=== PATIENT | female | born 1990 | race African-American/Black ===

== ENCOUNTER 2018-06-27 09:33 | Emergency (ER) | payer SELFPAY ==
[2018-06-27 11:38] LABS: Absolute Monocytes 0.4 K/uL (0.1-1.3); Absolute Neutrophil 2.6 K/uL (1.8-8.0); Basophils % 0.5 % (0-1.3); Eosinophils % 1.1 % (0-4.4); Hematocrit 36.7 % (36.0-45.0); Lymphocytes % 39.2 % (15.3-44.8); MPV 8.9 fL (7.6-11.3); Monocytes % 7.9 % (3.3-12.3); RBC Red Blood Cell Count 4.53 M/uL (3.86-4.86)
[2018-06-27 11:47] LABS: BUN Blood Urea Nitrogen 15 mg/dL (7-18); Bicarbonate 31 mmol/L (21-32); Glucose Level 176 mg/dL (74-106); Potassium 3.8 mmol/L (3.5-5.1); Sodium Level 139 mmol/L (136-145)
[2018-06-27 11:59] LABS: Urine Bacteria 20-50 /HPF (<20); Urine Culture Reflex Order REFLEXED; Urine Mucus 1+ /HPF (NONE SEEN); Urine RBC <5 /HPF (NONE SEEN)
[2018-06-27 12:06] LABS: Urine Blood NEGATIVE (NEG); Urine Glucose NEGATIVE (NEG); Urine Protein NEGATIVE (NEG); Urine Specific Gravity 1.025 (1.005-1.030); Urine pH 5.5 (5.0-7.0)
--- NOTE | 2018-06-27 12:34 | EDPHYS ---
Physician Documentation [facility] Name: Ping Brown Age: 27 yrs Sex: Female : 1990 Arrival Date: 06/27/2018 Time: 09:38 Bed 20 Private MD: None, None ED Physician Evan Brothers HPI: 06/27 12:53 This 27 yrs old Black Female presents to ER via Ambulatory with complaints of Headache, gs Back Pain. 12:53 The patient complains of pain to the forehead. The patient describes the headache as gs throbbing. Onset: The symptoms/episode began/occurred suddenly, yesterday. Associated signs and symptoms: Pertinent negatives: altered mental status, fever, neck stiffness, Photophobia vision changes, weakness. Severity of symptoms: At its worst the pain was moderate, in the emergency department the pain is unchanged. Headache History: The patient has had previous headaches and this one is similar to previous episodes. The symptoms are alleviated by nothing. the symptoms are aggravated by nothing. The patient has experienced similar episodes in the past, multiple times, for past 2-3 months same headache. 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 - Social history:: Smoking status: Patient uses tobacco products, smokes one pack cigarettes per day. - Ebola Screening: : No symptoms or risks identified at this time. ROS: 12:53 Back: Positive for pain with movement, lower right lateral back, no B/B signs or gs symptoms. Exam: 12:53 Head/Face: Normocephalic, atraumatic. Eyes: Pupils equal round and reactive to light, gs extra-ocular motions intact. Lids and lashes normal. Conjunctiva and sclera are non-icteric and not injected. Cornea within normal limits. Periorbital areas with no swelling, redness, or edema. ENT: Nares patent. No nasal discharge, no septal abnormalities noted. Tympanic membranes are normal and external auditory canals are clear. Oropharynx with no redness, swelling, or masses, exudates, or evidence of obstruction, uvula midline. Mucous membranes moist. Neck: Trachea midline, no thyromegaly or masses palpated, and no cervical lymphadenopathy. Supple, full range of motion without nuchal rigidity, or vertebral point tenderness. No Meningismus. Chest/axilla: Normal chest wall appearance and motion. Nontender with no deformity. No lesions are appreciated. Cardiovascular: Regular rate and rhythm with a normal S1 and S2. No gallops, murmurs, or rubs. Normal PMI, no JVD. No pulse deficits. Respiratory: Lungs have equal breath sounds bilaterally, clear to auscultation and percussion. No rales, rhonchi or wheezes noted. No increased work of breathing, no retractions or nasal flaring. Abdomen/GI: Soft, non-tender, with normal bowel sounds. No distension or tympany. No guarding or rebound. No evidence of tenderness throughout. Back: No spinal tenderness. No costovertebral tenderness. Full range of motion. Skin: Warm, dry with normal turgor. Normal color with no rashes, no lesions, and no evidence of cellulitis. MS/ Extremity: Pulses equal, no cyanosis. Neurovascular intact. Full, normal range of motion. Neuro: Awake and alert, GCS 15, oriented to person, place, time, and situation. Cranial nerves II-XII grossly intact. Motor strength 5/5 in all extremities. Sensory grossly intact. Cerebellar exam normal. Normal gait. 12:53 Constitutional: The patient appears alert, awake. Vital Signs: 10:22 BP 108 / 75; Pulse 73; Resp 18 S; Temp 98.0(TE); Pulse Ox 98% on R/A; Weight 89.81 kg aa5 (R); Height 5 ft. 4 in. (162.56 cm) (R); Pain 6/10; 11:21 BP 130 / 65; Pulse 92; Resp 17; Pulse Ox 97% on R/A; tw2 11:52 BP 119 / 71; Pulse 61; Resp 17; Pulse Ox 97% on R/A; tw2 12:37 BP 132 / 64; Pulse 58; Resp 17; Pulse Ox 98% on R/A; tw2 10:22 Body Mass Index 33.99 (89.81 kg, 162.56 cm) aa MDM: 11:09 Patient medically screened. 12:53 Differential diagnosis: migraine, tension headache, vasomotor headache. Data reviewed: vital signs, nurses notes. Counseling: I had a detailed discussion with the patient and/or guardian regarding: the historical points, exam findings, and any diagnostic results supporting the discharge/admit diagnosis, the presence of at least one elevated blood pressure reading (>120/80) during this emergency department visit, the need for outpatient follow up. Response to treatment: the patient's symptoms have markedly improved after treatment, and as a result, I will discharge patient. Special discussion: I have referred the patient to see his PCP for further evaluation of high blood pressure. 06/27 11:09 Order name: Urine Microscopic Only; Complete Time: 12:25 06/27 11:09 Order name: CBC with Diff; Complete Time: 12:25 06/27 11:09 Order name: Basic Metabolic Panel; Complete Time: 12:25 06/27 11:27 Order name: Urine Dipstick--Ancillary (enter results); Complete Time: 12:25 06/27 11:27 Order name: Urine --Ancillary (enter results); Complete Time: 12:25 06/27 12:01 Order name: Urine Culture [facility] 06/27 11:09 Order name: Urine Test (obtain specimen); Complete Time: 11:10 06/27 11:09 Order name: Urine Dipstick-Ancillary (obtain specimen); Complete Time: 11:10 Administered Medications: No medications were administered Disposition: 06/27/18 12:33 Discharged to Home. Impression: Headache. - Condition is Stable. - Discharge Instructions: General Headache Without Cause. - Prescriptions for Fiorinal 50- 325-40 mg Oral Capsule - take 1 capsule by ORAL route every 6 hours As needed - not to exceed 6 capsules per day; 10 capsule. - Work release form, Medication Reconciliation Form, Thank You Letter, Antibiotic Education, Prescription Opioid Use form. - Follow up: Private Physician; When: 2 - 3 days; Reason: Re-evaluation by your physician. Follow up: Shaun Gordon MD; When: 2 - 3 days; Reason: Re-evaluation by your physician. - Problem is new. - Symptoms are resolved. Signatures: [facility] Charlene Camp RN RN aa5 Cece Rios RN RN tw2 Evan Brothers MD MD Corrections: (The following items were deleted from the chart) 12:43 12:33 06/27/2018 12:33 Discharged to Home. Impression: Headache. Condition is Stable. tw2 Forms are Medication Reconciliation Form, Thank You Letter, Antibiotic Education, Prescription Opioid Use. Follow up: Private Physician; When: 2 - 3 days; Reason: Re-evaluation by your physician. Follow up: Shaun Gordon; When: 2 - 3 days; Reason: Re-evaluation by your physician. Problem is new. Symptoms are resolved. gs
--- NOTE | 2018-06-27 12:34 | ER ---
Nurse's Notes [facility] Name: Ping Brown Age: 27 yrs Sex: Female : 1990 Arrival Date: 06/27/2018 Time: 09:38 Bed 20 Private MD: None, None Diagnosis: Headache Presentation: 06/27 10:20 Presenting complaint: Patient states: low back pain and frontal headache that began aa5 yesterday. Pt also reports nausea, denies vomiting. Denies cough. 10:20 Method Of Arrival: Ambulatory aa5 10:20 Transition of care: patient was not received from another setting of care. Onset of aa5 symptoms was June 2018. Risk Assessment: Do you want to hurt yourself or someone else? Patient reports no desire to harm self or others. Initial Sepsis Screen: Does the patient meet any 2 criteria? No. Patient's initial sepsis screen is negative. Does the patient have a suspected source of infection? No. Patient's initial sepsis screen is negative. Care prior to arrival: None. 10:20 Acuity: MARIA C 3 aa5 Triage Assessment: 11:51 Headache History: The patient has had previous headaches and this one is similar to tw2 previous episodes. General: Appears. Pain: Pain Pain began years ago. Also complains of nausea. 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 - Social history:: Smoking status: Patient uses tobacco products, smokes one pack cigarettes per day. - Ebola Screening: : No symptoms or risks identified at this time. Screenin:51 Abuse screen: Denies threats or abuse. Nutritional screening:. Tuberculosis screening: tw2 No symptoms or risk factors identified. Fall Risk None identified. Assessment: 11:00 General: Appears in no apparent distress. Behavior is calm, cooperative, appropriate tw2 for age. Pain: Complains of pain in back and abdomen. Neuro: Level of Consciousness is awake, alert, obeys commands, Oriented to person, place, time, situation. Neuro: Reports headache. Cardiovascular: Denies chest pain, shortness of breath, Heart tones S1 S2 Patient's skin is warm and dry. Respiratory: Airway is patent Respiratory effort is even, unlabored, Respiratory pattern is regular, symmetrical, Breath sounds are clear bilaterally. GI: Abdomen is flat, non-distended, Bowel sounds present X 4 quads. Reports lower abdominal pain, upper abdominal pain, nausea. : Reports urinary frequency. EENT: No signs and/or symptoms were reported regarding the EENT system. Derm: No signs and/or symptoms reported regarding the dermatologic system. Skin is intact, is healthy with good turgor, Skin is dry, Skin temperature is warm. Musculoskeletal: Range of motion: intact in all extremities. 11:52 Reassessment: Patient appears in no apparent distress at this time. No changes from tw2 previously documented assessment. Patient and/or family updated on plan of care and expected duration. Pain level reassessed. Patient is alert, oriented x 3, equal unlabored respirations, skin warm/dry/pink. 12:42 Reassessment: Patient appears in no apparent distress at this time. No changes from tw2 previously documented assessment. Patient and/or family updated on plan of care and expected duration. Pain level reassessed. Patient is alert, oriented x 3, equal unlabored respirations, skin warm/dry/pink. Vital Signs: 10:22 BP 108 / 75; Pulse 73; Resp 18 S; Temp 98.0(TE); Pulse Ox 98% on R/A; Weight 89.81 kg aa5 (R); Height 5 ft. 4 in. (162.56 cm) (R); Pain 6/10; 11:21 BP 130 / 65; Pulse 92; Resp 17; Pulse Ox 97% on R/A; tw2 11:52 BP 119 / 71; Pulse 61; Resp 17; Pulse Ox 97% on R/A; tw2 12:37 BP 132 / 64; Pulse 58; Resp 17; Pulse Ox 98% on R/A; tw2 10:22 Body Mass Index 33.99 (89.81 kg, 162.56 cm) aa5 ED Course: 09:38 Patient arrived in ED. sb2 09:39 None, None is Private Physician. sb2 10:20 Arm band placed on. aa5 10:25 Triage completed. aa5 11:00 Evan Brothers MD is Attending Physician. gs 11:02 Rios, Cece, RN is Primary Nurse. tw2 11:02 Bed in low position. Call light in reach. Pulse ox on. NIBP on. tw2 11:20 CBC with Diff Sent. tw2 11:20 Basic Metabolic Panel Sent. tw2 11:20 Inserted saline lock: 22 gauge in left antecubital area, using aseptic technique. Blood tw2 collected. 12:33 Shaun Gordon MD is Referral Physician. 12:43 No provider procedures requiring assistance completed. IV discontinued, intact, tw2 bleeding controlled, No redness/swelling at site. Pressure dressing applied. Administered Medications: No medications were administered Outcome: 12:33 Discharge ordered by . gs 12:43 Discharged to home ambulatory. tw2 12:43 Condition: stable 12:43 Discharge instructions given to patient, Instructed on discharge instructions, follow up and referral plans. no drinking with medication, no driving heavy equipment, medication usage, Demonstrated understanding of instructions, follow-up care, medications, Prescriptions given X 1. 12:43 Patient left the ED. tw2 Signatures: Charlene Camp RN RN aa5 Cece Rios RN RN tw2 Evan Brothers MD MD Monik Ortega sb2
== END 2018-06-27 12:43 | disposition home or self-care (01) ==
LOC: ER 09:33
DX: R51 Headache (principal); F17.210 Nicotine dependence, cigarettes, uncomplicated
CPT/HCPCS: 36415; 80048; 81003; 81015; 81025; 85025; 87086; 87088; 99284

== ENCOUNTER 2020-06-25 21:18 | Inpatient (IN) | payer SELFPAY ==
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
--- OUTSIDE RECORDS SUMMARY | 2020-06-25 21:36 | XMS REPORT | Summary of Care ---
:1990 Author Organization [facility] Address [address] [place], [place] [id number] Care Team Providers Name Role Phone Pcp, Does Not Have A Primary Care Provider Encounter Details Date Type Department Care Team Description 04/30/2020 Orders Only [facility] Doctor Unassigned, No [address] [facility] [place] [address] Allergies No Known Allergiesdocumented as of this encounter (statuses as of 04/30/2020) Medications Medication Sig Dispensed Refills Start Date End Date Status Condoms Latex Use as directed 12 Each 0 03/11/2015 Active Lubricated (KIMONO TEXTURED CONDOMS) DeviIndications: General counseling for prescription of oral contraceptives norgestimate-ethinyl Take 1 tablet by 1 Package 2 09/28/2018 Active estradiol mouth daily. 0.18/0.215/0.25 mg-35 mcg (28) tabletIndications: Irregular menstrual cycle documented as of this encounter (statuses as of 04/30/2020) Active Problems Problem Noted Date Pre-diabetes 09/28/2018 General counseling and advice on contraceptive managem ent 10/09/2016 Well woman exam 10/09/2016 BMI 36.0-36.9,adult 10/09/2016 Depression, unspecified depression type 10/09/2016 Overview: denies Suicidal Ideas or harmful Ideas - to self or family, Does not feel she needs meds at this time - local resources give n 10/09/2016 Irregular menstrual cycle 10/09/2016 Overview: 10/09/2016 states her menses only comes t wice a year, last 04/2016 Tobacco use disorder 12/06/2013 documented as of this encounter (statuses as of 04/30/2020) Resolved Problems Problem Noted Date Resolved Date Need for Tdap vaccination 10/09/2016 04/06/2018 Routine screening for STI (sexually transmitted infection) 0 10/09/2016 04/06/2018 Obesity 12/06/2013 10/09/2016 Overview: ICD10 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 documented as of this encounter (statuses as of 04/30/2020) Immunizations Name Administration Dates Next Due TDAP (ADACEL) VACCINE 10/09/2016 Td 06/21/2004 documented as of this encounter Social History Tobacco Use Types Packs/Day Years Used Date Current Every Day Smoker Cigarettes Sta rted: 04/06/2008 Smokeless Tobacco: Never Used Comments: smokes 1-2 packs per day Alcohol Use Drinks/Week oz/Week Comments No Sex Assigned at Date Recorded Not on file documented as of this encounter Last Filed Vital Signs Not on filedocumented in this encounter Plan of Treatment Health Maintenance Due Date Last Done Comments VARICELLA VACCINES (1 of 2 11/30/1991 - 2-dose childhood series) Depression Screening 2002 INFLUENZA VACCINE (#1) 2020 PAP SMEAR 04/06/2021 04/06/2018, 03/11/2015, 08/01/2012, Additional history exists DTaP,Tdap,and Td Vaccines 10/09/2026 10/09/2016, 06/21/2004 (3 - Td) PNEUMOCOCCAL 0-64 YEARS Aged Out No longe r eligible COMBINED SERIES based on patient 's age to complete this topic documented as of this encounter Procedures Procedure Name Priority Date/Time Associated Diagnosis Comme nts ASSIGNMENT OF BENEFITS Routine 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
--- OUTSIDE RECORDS SUMMARY | 2020-06-25 21:36 | XMS REPORT | Summary of Care ---
:1990 Author Organization [facility] Address [address] [place] [id number] Care Team Providers Name Role Phone Pcp, Does Not Have A Primary Care Provider Reason for Visit Reason Comments Well Woman Exam Encounter Details Date Type Department Care Team Description 04/30/[address] [facility]- Zeenat Boateng Wel l woman exam (Primary Dx); [facility] Screen for STD (sexually transmitted dis ease); [address] Encounter for other general counseling o r advice on contraception; [address] Need for influenza vaccination; [place] [id number] 15 BMI 37.0-37.9, adult; [id number] Pre-diabetes; [phone] Desire fo r ; Hirsutism Allergies No Known Allergiesdocumented as of this encounter (statuses as of 04/30/2020) Medications Medication Sig Dispensed Refills Start Date End Date Status Condoms Latex Use as 12 Each 0 03/11/2015 Disco ntinued Lubricated (KIMONO directed 0 TEXTURED CONDOMS) DeviIndications: General counseling for prescription of oral contraceptives norgestimate-ethinyl Take 1 tablet 1 Package 2 09/28/2018 11/1 0/202 Discontinued estradiol by mouth 0 0.18/0.215/0.25 daily. 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 documented as of this encounter (statuses as of 04/30/2020) Immunizations Name Administration Dates Next Due Influenza Virus Vaccine Quad .5 mL IM 6+ MO 04/30/2020 TDAP (ADACEL) VACCINE 10/09/2016 Td 06/21/2004 documented as of this encounter Social History Tobacco Use Types Packs/Day Years Used Date Current Every Day Smoker Cigarettes 1 Sta rted: 04/06/2008 Smokeless Tobacco: Never Used Tobacco Cessation: Ready to Quit: Yes; C ounseling Given: Yes Comments: smokes 1 pack per day Alcohol Use Drinks/Week oz/Week Comments No Sex Assigned at Date Recorded Not on file documented as of this encounter Last Filed Vital Signs Vital Sign Reading Time Taken Comments Blood Pressure 109/73 04/30/2020 8:10 AM ASH COLLECTOR Pulse 61 04/30/2020 8:10 AM ASH COLLECTOR Temperature 36.6 C (97.9 F) 04/30/2020 8:10 AM ASH COLLECTOR Respiratory Rate 18 04/30/2020 8:10 AM ASH COLLECTOR Oxygen Saturation - - Inhaled Oxygen Concentration - - Weight 96.3 kg (212 lb 4.8 oz) 04/30/2020 8:10 AM ASH COLLECTOR Height 160 cm (5' 3") 04/30/2020 8:10 AM ASH COLLECTOR Body Mass Index 37.61 04/30/2020 8:10 AM ASH COLLECTOR documented in this encounter Patient Instructions Patient InstructionsOri Figueroa RN - 04/30/2020 7:45 AM CST Patient Education Understanding STIs When it comes to sex, nothing is risk-free. Any sexual contact with the penis, vagina, anus, or mouth can spread a sexually transmitted infection (STI). These include chlamydia, gonorrhea, herpes, HIV,and genital warts. STIs are also known as sexually transmitted diseases (STDs). The only sure way toprevent STIs is not having sex (abstinence). But there are ways to make sex safer. Use a latex condom each time you have sex. And choose your partner wisely. Use condoms for safer sex If you have sex, latex condoms provide the best protection against STIs. Latex condoms stop the exchange of body fluids that carry certain STIs. They also limit contact with affected skin. Be aware that a condom doesnt cover all skin. So affected skin that isn't covered can still transfer disease. But youre safer with a condom than without one. Use a condom even if you use other control. control methods such as the pill or IUD help prevent , but they don't protect against STIs. Choose the right condom Condoms made of latex prevent disease best. If youre allergic to latex, use polyurethane condoms instead. Male condoms fit over the penis. Female condoms line the vagina. Before buying a condom, read the label to be sure it prevents disease. Some novelty condoms dont. The right lubricant helps Buy lubricated condoms or use lubricant. This provides greater comfort and reduces the risk for condom breakage. Use only water-based lubricants. Dont use oil, lotion, or petroleum jelly. They can weaken the condom, causing breakage. Also, you may want to choose lubricants without nonoxynol-9. This spermicide may cause irritation. It can raise the risk for certain STIs. Use condoms correctly For condoms to work, they must be used the right way. Keep these tips in mind: Use a new latex condom each time you have sex. Slip the condom on the penis before any contact ismade. When ready to withdraw, hold the rim of the condom as the penis pulls out. This prevents the condom from slipping off. Check the expiration date before using a condom. Dont store condoms in places that can get hot, such as a car or a wallet that is carried in a back pocket. Get to know your partner Safer sex is a process. It involves getting to know your partner and making informed choices. Ask each other how many partners you have had in the past, and how many you have now. Find out if either ofyou has HIV or any other STI. If you decide to have sex, use a condom each time. Dont stop using condoms unless youre sure neither of you has other partners and youve both been tested to confirm you dont have HIV or other STIs. Then stay free of disease by having sex only with each other (monogamy). Keep your cool Dont let alcohol or drugs cloud your judgment. They could lead you to have sex with someone you wouldnt have chosen if you were sober. Or you might forget to use a condom. If you do plan to have sex, keep a latex condom with you. Dont wait until youre in the heat of passion to try to find one. Consider abstinence The only way to be sure you wont get an STI is to abstain from sex. Abstinence is a choice that many people make at some point in their life. Maybe you want to wait until you are sure youre readybefore you have sex. Maybe youd like a break from the responsibilities of sex for a while. Or maybe you just want to know your partner better before taking the next step. Abstinence is a choice you can make now to protect your future. [employer] last reviewed this educational content on 05/21/201819999193-3522 [employer]. [address] [place] [address], [place] [address]. All rights reserved. This information is not intended as a substitute for professional medical care. Always follow your healthcare professional's instructions. Patient Education Prevention Guidelines,Women Ages 18 to 39 Screening tests and vaccines are an important part of managing your health. A screening test is doneto find possible disorders or diseases in people who don't have any symptoms. The goal is to find a disease early so lifestyle changes can be made and you can be watched more closely to reduce the riskof disease, or to detect it early enough to treat it most effectively. Screening tests are not considered diagnostic, but are used to determine if more testing is needed. Health counseling is essential, too. Below are guidelines for these, for women ages 18 to 39. Talk with your healthcare provider tomake sure youre up-to-date on what you need. Screening Who needs it How often Alcohol misuse All women in this age group At routine exams Blood pressure All women in this age group Yearly checkup if your blood pressure is normal Normal blood pressure is less than 120/80 mm Hg If your blood pressure reading is higher than normal, follow the advice of your healthcare provider Breast cancer All women in this age group should talk with their healthcare providers about the needfor clinical breast exams (CBE)1 Clinical breast exam every 3 years1 Cervical cancer Women ages 21 and older Women between ages 21 and 29 should have a Pap test every 3years; women between ages 30 and 65 are advised to have a Pap test plus an HPV test every 5 years Chlamydia Sexually active women ages 24 and younger, and women at increased risk for infection Every 3 years if you're at risk or have symptoms Depression All women in this age group At routine exams Diabetes mellitus, type 2 Adults with no symptoms who are overweight or obese and have 1 or more other risk factors for diabetes At least every 3 years. Also, testing for diabetes during after the 24th week. Gonorrhea Sexually active women at increased risk for infection At routine exams Hepatitis C Anyone at increased risk At routine exams HIV All women At routine exams3 Obesity All women in this age group At routine exams Syphilis Women at increased risk for infection should talk with their healthcare provider At routine exams Tuberculosis Women at increased risk for infection should talk with their healthcare provider Ask your healthcare provider Vision All women in this age group At least 1 complete exam in your 20s, and 2 in your 30s Vaccine Who needs it How often Chickenpox (varicella) All women in this age group who have no record of this infection or vaccine2 doses; the second dose should be given 4 to 8 weeks after the first dose Hepatitis A Women at increased risk for infection should talk with their healthcare provider 2 doses given at least 6 months apart Hepatitis B Women at increased risk for infection should talk with their healthcare provider 3 doses over 6 months; second dose should be given 1 month after the first dose; the third dose should be given at least 2 months after the second dose and at least 4 months after the first dose Haemophilus influenzae Type B (HIB) Women at increased risk for infection should talk with their healthcare provider 1 to 3 doses Human papillomavirus (HPV) All women in this age group up to age 26 3 doses; the second dose should be given 1 to 2 months after the first dose and the third dose given 6 months after the first dose Influenza (flu) All women in this age group Once a year Measles, mumps, rubella (MMR) All women in this age group who have no record of these infections orvaccines 1 or 2 doses Meningococcal Women at increased risk for infection should talk with their healthcare provider 1 ormore doses Pneumococcal conjugate vaccine (PCV13)and pneumococcal polysaccharidevaccine(PPSV23) Women atincreased risk for infection should talk with their healthcare provider PCV13: 1 dose ages 19 to 65(protects against 13 types of pneumococcal bacteria) PPSV23: 1 to2 doses through age 64, or 1 dose at 65 or older (protects against 23 types of pneumococcal bacteria) Tetanus/diphtheria/pertussis (Td/Tdap) booster All women in this age group Td every 10 years, or a one-time dose of Tdap instead of a Td booster after age 18, then Td every 10 years Counseling Who needs it How often BRCA gene mutation testing for breast and ovarian cancer susceptibility Women with increased risk for having gene mutation When your risk is known Breast cancer and chemoprevention Women at high risk for breast cancer When your risk is known Diet and exercise Women who are overweight or obese When diagnosed, and then at routine exams Domestic violence Women at the age in which they are able to have children At routine exams Sexually transmitted infection prevention Women who are sexually active At routine exams Skin cancer Prevention of skin cancer in fair-skinned adults At routine exams Use of tobacco and the health effects it can cause All women in this age group Every visit 1 According to the ACS, women ages 20 to 39 years should have a clinical breast exam (CBE) as part of their routine health exam every 3 years. Breast self-exams are an option for women starting in their 20s.But the U.S. Preventive Services Task Force (USPSTF) does not recommend CBE. 2 Those who are 18 years old and not up-to-date on their childhood vaccines should get all appropriate catch-up vaccines recommended by the CDC. 3 The USPSTF recommends that all people ages 15 to 65 years be screened for HIV and those younger orolder people at increased risk. The CDC recommends that everyone between the ages of 13 and 64 get tested for HIV at least once as part of routine health care. MilaYves last reviewed this educational content on 03/21/201719996321-9715 [employer]. All rights reserved. This information is not intended as a substitute for professional medical care. Always follow your healthcare professional's instructions. Patient Education Understanding HIV and AIDS It's important to know how HIV can get into your body and what happens once its there. Then youll be better prepared to protect yourself or others against this virus. A person with HIV can look and feel perfectly healthy. But that person can give HIV to others as soon as he or she is infected with the virus. Having unsafe or unprotected sex or sharing needles puts you at risk for HIV. Talk with your healthcare provider about ways to protect yourself or a loved one from getting HIV. How HIV infection progresses After HIV enters the body, it attacks the immune system in the stages below. A person with HIV can infect others once the virus gets into the blood. HIV with no symptoms. A person with HIV may have no symptoms for years. The only sign of infection may be a positive blood test for HIV 2 weeks to 3 months or later after HIV enters the body. HIV with symptoms. Some people develop an illness similar to mono (mononucleosis) 2 to 4 weeks after the virus enters the body. This is called acute retroviral syndrome. Symptoms may include swollen lymph glands, chills, fever, night sweats, weakness, weight loss, skin rashes, mouth ulcers, or sore t hroat. Symptoms may be mild or the person can feel quite sick. Even without treatment the symptoms almost always go away in a few days or up to 2 to 3 weeks. Then the person has no symptoms, often for years. But over time the immune system starts to get weaker and symptoms start appearing. People at this stage may have a yeast infection in the mouth (oral thrush), shingles, skin problems, pneumonia, diarrhea that keeps coming back, or weight loss. AIDS. AIDS is the most advanced stage of HIV infection, when the immune system is severely weakened.Certain rare diseases and cancers that normally would not occur, now can occur because the body can no longer fight them well enough. It is often these diseases that cause in people with AIDS. HIV may also directly attack the brain and nervous system. This causes seizures and loss of memory and body movement. It also affects many other parts of the body. This leads to problems such as anemia, low white blood cell count, diarrhea, belly pain, skin problems, and many others. How HIV enters the body HIV is carried in semen, vaginal fluid, blood, and breastmilk. During sex, HIV can enter the body. It gets in through the fragile tissue and linings, sores, or cuts in or around the vagina, penis, anus, and mouth. During drug use, tattooing, or body piercing, the virus can enter the blood through an infected needle. A mother who has HIV can infect her child during , childbirth, and . [employer] last reviewed this educational content on 11/19/201819999479-8764 [employer]. [address] [place] [address]. All rights reserved. This information is not intended as a substitute for professional medical care. Always follow your healthcare professional's instructions. Patient Education Clinical Breast Exam Many health organizations recommend a yearly clinical breast exam. This exam may be done by a meter tester, family healthcare provider, nurse practitioner, nurse insurance checker, or specially trained nurse. Yearly breast exams help tomake surethat breast conditions are found early. Your healthcare providers role A healthcare professional knows the tests and follow-up care needed if a problem is found. Your clinical exam is also a great time to ask questions about breast self-exams. You can find out if yourechecking your breasts in the best way. Or you may want to ask how , breast implants, or breast reduction surgery affect the way you should check your breasts. Diagnostic tests If a clinical exam reveals a breast change, you may have other tests to find out more. These tests may include: Mammography. A low-dose X-ray of your breast tissue. Ultrasound. An imaging test that uses sound waves to create images of your breast. Biopsy. A small amount of breast tissue is removed by needle or by a cut (incision). The tissue is then checked under a microscope. Guidelines for having clinical breast exams The [employer] recommends that starting at age 29, you should have a clinical breast exam every 1 to 3 years. After age 40, have a clinical breast exam each year. If youre at higher risk for breast cancer, you may need exams more often. Risk factors for breast cancer may include: Being over 50 or postmenopausal Having a family history of breast cancer Having the BRCA1 or BRCA2 gene mutation or certain other gene mutations Having more menstrual periods due to starting menstruation early(before age 12) or having a late menopause (after age 55) Having no pregnancies Having a first after age 30 Being obese Having a history of radiation treatment to your chest area Exposure to MAITE during your mother's Not being active Drinking too much alcohol Having dense breast tissue Taking hormone therapy after menopause Other health organizations have different recommendations. Talk with your healthcare provider about what is best for you. [employer] esther reviewed this educational content on 09/20/201919997736-3631 [employer]. All rights reserved. This information is not intended as a substitute for professional medical care. Always follow your healthcare professional's instructions. Patient Education Breast Health: Breast Self-Awareness What is breast self-awareness? Breast self-awareness is knowing how your breasts normally look and feel. Your breasts change as yougo through different stages of your life. So its important to learn what is normal for your breasts. Knowing about your breasts helps you spot any changes in them right away. Tell your healthcare provider about any changes. Why is breast self-awareness important? Many experts now say that women should focus on breast self-awareness instead of doing a breast self-examination (BSE). These experts include the [employer] and the [employer]. Some experts even advise not teaching women to do a BSE. Thats because research hasnt shown a clear benefit to doing BSEs. Breast self-awareness is different than a BSE. It isnt about following a certain method and schedule. Its about knowing what's normal for your breasts. That way you can spot even small changes right away. If you see any changes, tell your healthcare provider. Changes to look for Call your healthcare provider if you find any changes in your breasts that worry you. These changes may be: A lump Nipple discharge other than breast milk, especially if it's bloody Swelling A change in size or shape Skin changes, such as redness, thickening, or dimpling of the skin Swollen lymph nodes in the armpit Nipple problems, such as pain or redness If you find a lump Call your provider if you find lumpiness in one breast. Also call if you feel something different inthe tissue or feel a definite lump. Sometimes lumpiness may be due to menstrual changes. But there may be reason for concern. Your provider may want to see you right away if you have: Nipple discharge that is bloody Skin changes on your breast, such as dimpling or puckering Its okay to be upset if you find a lump. Be sure to call your provider right away. Remember that most breast lumps are benign. This means they are not cancer. [employer] last reviewed this educational content on 10/20/201919991844-0160 [employer]. All rights reserved. This information is not intended as a substitute for professional medical care. Always follow your healthcare professional's instructions. Patient Education The Range of Pap Test Results When your Pap test is sent to the lab, the lab studies your cell samples and reports any abnormal cell changes. Your healthcare provider can discuss these changes with you. In some cases, an abnormal Pap test is due to an infection. More serious cell changes range from dysplasia to cancer. Talk to your healthcare provider about your Pap test. Normal results Cervical cells, even normal ones, are always changing. As they mature, normal squamous cells move from deeper layers within the cervix. Over time, these cells flatten and cover the surface of the cervix. Within the cervical canal, the cells are different. These glandular cells are taller and not as flat as the cells on the surface of the cervix. When a Pap test sample shows healthy cells of both types, the results are negative. Keep having Pap tests as often as directed. Abnormal results A positive Pap test result means some cells in the sample showed abnormal changes. These results aregrouped by the type of cell change and the location, or extent, of the changes. Depending on the results, you may need further testing. Inflammation. Noncancerous changes are present. They may be due to normal cell repair. Or they may be caused by an infection, such as HPV or yeast. Further testing may be needed. (Also called reactive cellular changes.) Atypical squamous cells. Test results are unclear. Cells on the surface of the cervix show changes, but their significance is not yet known. Testing for HPV and other sexually transmitted infections(STIs) may be needed. Treatment may be required. (Reported as ASC-US or ASC-H.) Atypical glandular cells. Cells lining the cervical canal show abnormal changes. Further testing is likely. You may also have treatment to destroy or remove problem cells. (Reported as AGC.) Mild dysplasia. Cells show distinct changes. More testing or HPV typing may be done. You may alsohave treatment to destroy or remove problem cells. (Reported as low-grade GREGORY or DAYDAY 1.) Moderate to severe dysplasia. Cells show precancerous changes. Or noninvasive cancer (carcinoma in situ) may be present. Treatment to destroy or remove problem cells is likely. (Reported as high-grade GREGORY or DAYDAY 2 or DAYDAY 3.) Cancer. Different types of cancer may be detected by your Pap test. More tests to assess the cancer's extent are likely. The type of treatment will depend on the test results and other factors, suchas age and health history. (Reported as squamous cell carcinoma, endocervical adenocarcinoma in situ, or adenocarcinoma.) [employer] last reviewed this educational content on 11/20/201919996092-9088 [employer]. All rights reserved. This information is not intended as a substitute for professional medical care. Always follow your healthcare professional's instructions. Patient Education Control Methods control methods are used to help prevent .There are many different methods to choose from. Talk with your healthcare provider about which method is right for you.Be sure to ask your provider how well each one works. Also ask about the benefits, risks, and side effects of each method. Hormones Some control methods work by releasing hormones such as progestin and estrogen. These methods include hormone implants, hormone shots, the vaginal ring, the patch,and control pills. They all work by stopping the release of the egg from the ovary (ovulation). All of these methods work well and can be stopped at any time. The implant is a small device that needs to be placed in the upper arm by a trained healthcare provider. It works for up to3 years. Hormone injections must be repeated every 3 months. The vaginal ring must be replaced monthly. It can be removed during the fourth week of each cycle. The patch must be replaced weekly. It's not worn during the fourth week of each cycle. control pills must be taken every day. Intrauterine device (IUD) An IUD is a small, T-shaped device. It must be placed in the uterus by a trained healthcare provider.There are different types of IUDs available. They work by causing changes in the uterus that make it harder for sperm to reach the egg. Depending on the type of IUD you have, it may work for several years or longer. The IUD is a reversible control method. This means it can be removed at any time. Condom A condom is a sheath that forms a thin barrier between the penis and the vagina.It helps prevent by keeping sperm from entering the vagina. When latex condoms are used, they have the added benefit of protecting against most STIs (sexually transmitted infections).Condoms are used each time there is sexual intercourse and should be discarded after each use. Ask your healthcare provider about the different types of condoms available. These include both the male condom and female condom. Spermicide Spermicides come as foams, jellies, creams, suppositories, andtablets.They help prevent by killing sperm. When used alone they are not that reliable. They work best when combined with other control methods such as diaphragms and cervical caps. Sponge, diaphragm, and cervical cap All of these methods help prevent by covering the opening of the uterus (cervix). This prevents sperm from passing through. The sponge contains spermicide. It can be bought over the counter. The sponge must be left in place for at least 6 hours after the last time you have sex.However, it should not stay in place for morethan 24 hours. Discard after use. Thediaphragmand cervical cap must be fitted and prescribed by your healthcare provider. Both areused with spermicide.The diaphragm must be left in place for at least 6 hours after sex. However, it should not stay in place for more than 24 hours.It can be washed and reused. The cervical cap must be left in place for at least 6 hours after sex. However, it should not stay in place for more than 48 hours. It can be washed and reused. Withdrawal method This is when the man pulls his penis out of the vagina just before ejaculation (coming). This lowers the amount of sperm entering the vagina. Be aware that fluids released just before ejaculationoften still contain some sperm, so this method is not as reliable as certain other methods. Rhythm method This method is also call natural family planning or fertility awareness. It requires that you know when in your menstrual cycle you are likely to become . Then you not have sex during those days. This requires careful planning and good discipline. Your healthcare provider can explain more about how this works. Tubal ligation and vasectomy These are surgical methods to prevent . Tubal ligation is an option for women. The fallopian tubes are blocked or cut (ligated). This keeps the egg from passing into the uterus or sperm from reaching the egg. Vasectomy is an option for men. The tubes that normally carry sperm to the penis areeither closed or blocked. Both tubal ligation and vasectomy are permanent control methods. This means reversal is either not possible or unlikely to work.They are good choices for women and menwho know that they don't want to have children in the future. [employer] last reviewed this educational content on 12/20/201919999136-0494 [employer]. All rights reserved. This information is not intended as a substitute for professional medical care. Always follow your healthcare professional's instructions. COLLECTOR documented in this encounter Progress Notes Zeenat Boateng, ANTON - 04/30/2020 7:45 AM CST Chief complaint: Chief Complaint Patient presents with Well Woman Exam HPI Here for Well Woman Exam and contraceptive management. Patient desires nothing for contraception, desires to conceive. Reviewed risks/benefits/alternative contraceptive methods. Denies cramps, vaginal discharge, genital lesions, breast pain and vaginal pain. Pt concerned she has PCOS, based on her research. Reports history of irregular menses, but currently regular q month. +hirsituism. Has been trying to conceive for over 2 years. Noted to be pre-diabetic in 2018. Was previously recommend OPK, but never tried, unsure if she is ovulating. Desires STD testing. Pt reports no past or present history of physical, sexual, and emotional abuse. Rubella: immune VZV: deferred BMI: Body mass index is 37.61 kg/m. Td: 2017 Pap Smear: 2018 NILM Gardasil: N/A Mammogram:N/A Guaiac:N/A Colonoscopy:N/A Histories OB History Para Term AB Living 0 0 0 0 0 0 SAB TAB Ectopic Multiple Live Births 0 0 0 0 Past Medical History: Diagnosis Date Abnormal uterine bleeding Anxiety 2017 ongoing, not on medication Chlamydia 2010 treated Depression, unspecified depression type 10/09/2016 ongoing, not on medication Gonorrhea 2010 treated Irregular menstrual cycle Menstrual disorder Substance abuse Tobacco use disorder 12/06/2013 Family History Problem Relation Age of Onset Heart Other Irregular HR and Murmur Depression Other Hypertension Other Psychiatry Other Hypertension Maternal Aunt Diabetes Maternal Aunt Colon Cancer Maternal Uncle Cancer Maternal Grandfather Lung, Prostate Diabetes Maternal Grandfather Arthritis NoFHx Asthma NoFHx defects NoFHx Breast Cancer NoFHx Ovarian Cancer NoFHx Uterine Cancer NoFHx Genetic NoFHx High cholesterol NoFHx Mental retardation NoFHx Neurological NoFHx Osteoporosis NoFHx Family Status Relation Name Status OTHER Cousin Alive MAunt (Not Specified) MUnc (Not Specified) MGFa (Not Specified) NoFHx (Not Specified) History reviewed. No pertinent surgical history. Social History Socioeconomic History Marital status: Single Spouse name: Not on file Number of children: Not on file Years of education: Not on file Highest education level: Not on file Occupational History Not on file Social Needs Financial resource strain: Not on file Food insecurity Worry: Not on file Inability: Not on file Transportation needs Medical: Not on file Non-medical: Not on file Tobacco Use Smoking status: Current Every Day Smoker Packs/day: 1.00 Types: Cigarettes Start date: 04/06/2008 Smokeless tobacco: Never Used Tobacco comment: smokes 1 pack per day Substance and Sexual Activity Alcohol use: No Drug use: Yes Types: Marijuana Sexual activity: Yes Partners: Male control/protection: None Comment: last sexual intercourse 03/28/2018 Lifestyle Physical activity Days per week: Not on file Minutes per session: Not on file Stress: Not on file Relationships Social connections Talks on phone: Not on file Gets together: Not on file Attends rastafarian service: Not on file Active member of club or organization: Not on file Attends meetings of clubs or organizations: Not on file Relationship status: Not on file Intimate partner violence Fear of current or ex partner: Not on file Emotionally abused: Not on file Physically abused: Not on file Forced sexual activity: Not on file Other Topics Concern Not on file Social History Narrative Denies domestic violence or abuse. Patient lives with mother. Social History Substance and Sexual Activity Sexual Activity Yes Partners: Male control/protection: None Comment: last sexual intercourse 03/28/2018 Labs Labs are pending. Radiology No new radiology. Allergies Timesjb has No Known Allergies. Medications Ping currently has no medications in their medication list. Review of Systems Constitutional: Negative. HENT: Negative. Eyes: Negative. Respiratory: Negative. Breasts: Negative. Cardiovascular: Negative. Gastrointestinal: Negative. Genitourinary: Negative. Musculoskeletal: Negative. Skin: Negative. Neurological: Negative. Psychiatric/Behavioral: Negative. Endocrine: Endocrine negative Facial and chest hair growth BP 109/73 (BP Location: Right arm, Patient Position: Sitting, BP CUFF SIZE: Adult Medium) | Pulse 61 | Temp 36.6 C (97.9 F) (Oral) | Resp 18 | Ht 5' 3" (1.6 m) | Wt 212 lb 4.8 oz (96.3 kg) | LMP 04/01/2020 (Exact Date) | BMI 37.61 kg/m Pregravid BMI: Could not be calculated Physical Exam Vitals reviewed. Constitutional: She is oriented to person, place, and time. She appears well- developed and well-nourished. Her body habitus is normal and obese. Central adiposity Neck: No thyroid nodules and no thyromegaly palpated. Cardiovascular: Regular rate and rhythm. No murmur auscultated. Pulmonary/Chest: Breath sounds clear to auscultation. Normal inspiratory effort. Abdominal: Abdomen is soft. No mass palpated. No tenderness present. There is no hepatosplenomegaly. Neuro/Psychiatric: She has a normal mood and affect. She is oriented to person, place, and time. Skin: Skin normal. No lesion and no rash present. Coarse hair on chin and face Breast: Right breast exhibits no mass, no nipple discharge and no tenderness. Left breast exhibits no mass, no nipple discharge and no tenderness. Normal left breast and normal right breast Assessment/Plan 1. Well woman exam CBE performed, educated patient regarding self breast awareness. SBE monthly. Patient advised mammograms to begin at age 40 Encourage green leafy vegetables, lean meats and fruit in diet. Avoid fatty, fried, sugary foods. Increase H2O intake (1/2 body weight in ozs). Exercise 30 minutes daily x 7 days/week as tolerated. Follow up 1 year Educated on the effects of chronic health problems, tobacco use, and mental health on future pregnancies and/or watermaster health. 2. Screen for STD (sexually transmitted disease) Reviewed safe sex practices - HIV 1/2 AG-AB WITH REFLEX - GALV ONLY - SYPHILIS IGG/IGM - GC & CHLAMYDIA AMPLIFIED ASSAY 3. Encounter for other general counseling or advice on contraception D/w pt at length various BCMs including OCPs, Patch, Depo Provera, vaginal rings, condoms, implants and iuds. We discussed the risk/benefits/side effects of each. After discussion, pt declines contraception at this time. 4. Need for influenza vaccination Administered today. VSS provided. - FLU VACC([id number]), 6+ MONTHS, IM, QUAD (FLUZONE/FLULAVAL/FLUARIX) 5. BMI 37.0-37.9, adult The patient is asked to make an attempt to improve diet and exercise patterns to aid in medical management of this problem. Discussed role of obesity in possible PCOS and infertility - LIPID PANEL (10663)(TOTAL CHOLESTEROL, TRIGLYCERIDES, HDL) 6. Pre-diabetes Discussed recommended diet and lifestyle changes - GLYCOSYLATED HEMOGLOBIN (A1C) 7. Desire for Discussed tracking menses in an luz with predicted ovulatory window Discussed OPKs and timed intercourse Recommend seeking ALEXANDER consultation 8. Hirsutism Possible PCOS, however currently having regular menses, unable to obtain pelvic ultrasound, normal testosterone level in 2018 Declines OCPs at this time for medical management Return to clinic in 52 weeks. Discussed treatment options. Reviewed patient instructions and provided printed copy. This visit did not involve counseling and coordination that comprised more than 50% of the visit time. Zara Miller LVN - 04/30/2020 7:45 AM CST29 year old presented to the clinic for WWE. 1) Previous BCM:none 2) Desired BCM:none 3) LMP:04/01/2020 4) Last [facility]:04/29/2020 5) Last Pap:04/06/2018 Results:negative 6) Tdap in last 10 years?10/09/2016 HPV?no 7) C/O none 8) Patient denies history of physical, emotional, or sexual abuse. Patient states she currently feels safe at home. COLLECTOR documented in this encounter Plan of Treatment Date Type Specialty Care Team Description 05/01/2021 Office Visit [facility] Zeenat Boateng, WO[employer]ER [address] [place], [place] [address] [phone] Name Type Priority Associated Diagnoses Date/Ti me HIV 1/2 AG-AB WITH REFLEX LAB Routine Screen for STD (sexually 04/30/2020 8:48 AM transmitted disease) ASH COLLECTOR GALV ONLY - SYPHILIS LAB Routine Screen for STD (sexu ally 04/30/2020 8:48 AM IGG/IGM transmitted disease) ASH COLLECTOR GLYCOSYLATED HEMOGLOBIN LAB Routine Pre-diabetes 04/21 8:48 AM (A1C) ASH COLLECTOR LIPID PANEL (13744)(TOTAL LAB Routine BMI 37.0-37.9, adult 04/30/2020 8:48 AM CHOLESTEROL, ASH COLLECTOR TRIGLYCERIDES, HDL) GC & CHLAMYDIA AMPLIFIED LAB Routine Screen for STD ( sexually 04/30/2020 8:49 AM ASSAY transmitted disease) ASH COLLECTOR Health Maintenance Due Date Last Done Comments PAP SMEAR 04/06/2021 04/06/2018, 03/11/2015, 08/01/2012, Additional history exists Depression Screening 04/30/2021 04/30/2020, 04/30/2020 DTaP,Tdap,and Td Vaccines (3 - 10/09/2026 10/09/2016, 06/21 Td) INFLUENZA VACCINE Completed 04/30/2020 PNEUMOCOCCAL 0-64 YEARS COMBINED Discontinued SERIES VARICELLA VACCINES Discontinued documented as of this encounter Procedures Procedure Name Priority Date/Time Associated Diagnosis Comme nts FLU VACC ([id number]), Routine 04/30/2020 8:27 AM Need for inf luenza 6+ MONTHS, IM, QUAD ASH COLLECTOR vaccination documented in this encounter Results Not on filedocumented in this encounter Visit Diagnoses Diagnosis Encounter for other general counseling o r advice on contraception Screen for STD (sexually transmitted dis ease) Screening examination for venereal disea se Need for influenza vaccination Need for prophylactic vaccination and in oculation against influenza BMI 37.0-37.9, adult Pre-diabetes Other abnormal glucose Desire for Unspecified procreative management Hirsutism documented in this encounter Insurance Payer Benefit Plan Subscriber ID Effective Phone Address Typ e / Group Dates [facility] [id number] 2016-Prese [phone] Medicaid WOMEN [address] [place] [address] documented as of this encounter
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
--- OUTSIDE RECORDS SUMMARY | 2020-06-25 21:37 | XMS REPORT | Summary of Care ---
:1990 Author Organization [facility] Address [address] [place] [address] Care Team Providers Name Role Phone Pcp, Does Not Have A Primary Care Provider Reason for Visit Reason Comments NURSE VISIT Encounter Details Date Type Department Care Team Description 05/10/2020 Nurse Visit [facility] Lula Boateng, SEGMENT PRODUCER [address] [place], [place] [id number] Syphilis (Primary Dx) [place] Visit, [facility] Nurse [address] [place] [address] Allergies No Known Allergiesdocumented as of this encounter (statuses as of 05/10/2020) Medications Hospital, Clinic, or Ordered Dose Route Frequency Start Date End D ate Status Other Facility Administered Medication penicillin g benzathine 2.4 Million Units IM QWEEKLY 05/03/20 20 05/24/2020 Active (BICILLIN L-A) injection 2.4 Million Units documented as of this encounter (statuses as of 05/10/2020) Active Problems Problem Noted Date Syphilis 05/03/2020 Low serum HDL 05/01/2020 High triglycerides 05/01/2020 Type 2 diabetes mellitus without complication, without long-term current 05/01/2020 use of insulin Desire for 04/30/2020 Hirsutism 04/30/2020 Pre-diabetes 09/28/2018 [...] as of this encounter (statuses as of 05/10/2020) Resolved Problems Problem Noted Date Resolved Date Need for Tdap vaccination 10/09/2016 04/06/2018 Routine screening for STI (sexually transmitted infection) 0 10/09/2016 04/06/2018 Obesity 12/06/2013 10/09/2016 Overview: ICD10 Diagnosis Term Traffic Counter Utility documented as of this encounter (statuses as of 05/10/2020) Immunizations Name Administration Dates Next Due Influenza Virus Vaccine Quad .5 mL IM 6+ MO 04/30/2020 TDAP (ADACEL) VACCINE 10/09/2016 Td 06/21/2004 documented as of this encounter Social History Tobacco Use Types Packs/Day Years Used Date Current Every Day Smoker Cigarettes 1 Sta rted: 04/06/2008 Smokeless Tobacco: Never Used Comments: smokes 1 pack per day Alcohol Use Drinks/Week oz/Week Comments No Sex Assigned at Date Recorded Not on file COVID-19 Exposure Response Date Recorded In the last month, have you been in contact with No / Unsure 05/10/2020 1:31 PM VALVE PIPE IRRIGATOR someone who was confirmed or suspected to have Coronavirus / COVID-19? documented as of this encounter Last Filed Vital Signs Vital Sign Reading Time Taken Comments Blood Pressure 122/78 05/10/2020 1:32 PM VALVE PIPE IRRIGATOR Pulse 95 05/10/2020 1:32 PM VALVE PIPE IRRIGATOR Temperature 36.7 C (98 F) 05/10/2020 1:32 PM VALVE PIPE IRRIGATOR Respiratory Rate 16 05/10/2020 1:32 PM VALVE PIPE IRRIGATOR Oxygen Saturation - - Inhaled Oxygen Concentration - - Weight 96.7 kg (213 lb 3.2 oz) 05/10/2020 1:32 PM VALVE PIPE IRRIGATOR Height 160 cm (5' 3") 05/10/2020 1:32 PM VALVE PIPE IRRIGATOR Body Mass Index 37.77 05/10/2020 1:32 PM VALVE PIPE IRRIGATOR documented in this encounter Progress Notes Sheridan Perez, RN - 05/10/2020 1:30 PM CSTPatient here for nurse visit: Syphilis treatment #2 Patient given Bicillin injections per provider's orders from clinic stock. Patient tolerated injections well. Patient to RTC in 1 wk for dose #3. Patient verbalized understanding. documented in this encounter Plan of Treatment Date Type Specialty Care Team Description 05/22/2020 Nurse Visit [facility] Visit, [facility] Nurse 05/01/2021 Office Visit [facility] Zeenat Boateng, SEGMENT PRODUCER [address] [place], [place] [address] [phone] Health Maintenance Due Date Last Done Comments CREATININE (SERUM) 2000 EYE EXAM 2000 URINE MICROALBUMIN 2000 FOOT EXAM 2008 HgA1C 10/28/2020 04/30/2020, 04/06/2018 PAP SMEAR 04/06/2021 04/06/2018, 03/11/2015, 08/01/2012, Additional history exists Depression Screening 04/30/2021 04/30/2020, 04/30/2020 LDL-C 04/30/2021 04/30/2020 DTaP,Tdap,and Td Vaccines (3 - 10/09/2026 10/09/2016, 06/21 Td) INFLUENZA VACCINE Completed 04/30/2020 PNEUMOCOCCAL 0-64 YEARS COMBINED Discontinued SERIES VARICELLA VACCINES Discontinued documented as of this encounter Results Not on filedocumented in this encounter Visit Diagnoses Diagnosis Syphilis - Primary Syphilis, unspecified documented in this encounter Administered Medications Medication Order MAR Action Action Date Dose Rate Site penicillin g Given 05/10/2020 2.4 Million Bilateral G luteus benzathine (BICILLIN 1:47 PM VALVE PIPE IRRIGATOR Units L-A) injection 2.4 Million Units 2.4 Million Units, Intramuscular, QWEEKLY, 3 doses, First dose on Wed05/03/20 at 1645, Last dose on Wed05/17/20 at 1645, XIAO, Reason for Anti-Infective: Documented Infection, Documented Infection Site: Other, Other site: systemic, Duration of Therapy: Other (see Comments) Given 05/03/2020 4:56 PM VALVE PIPE IRRIGATOR 2.4 Million Units Bilateral Gluteus documented in this encounter Insurance Payer Benefit Plan Subscriber ID Effective Phone Address Typ e / Group Dates [facility] [id number] 2016-Randee [phone] Medicaid WOMEN nt [address] [place] [address] documented as of this encounter
--- OUTSIDE RECORDS SUMMARY | 2020-06-25 21:37 | XMS REPORT | Summary of Care ---
:1990 Author Organization [facility] [employer] Address [address] [place] [address] Care Team Providers Name Role Phone Pcp, Does Not Have A Primary Care Provider Reason for Visit Reason Comments Lab Results Encounter Details Date Type Department Care Team Description 05/01/2020 Telephone [facility] Zeenat Neumann, ANTON Lab Results [address] [place] [address] [facility] A [phone] [place], [place] [address] Allergies No Known Allergiesdocumented as of this encounter (statuses as of 05/01/2020) Medications No known medicationsdocumented as of this encounter (statuses as of 05/01/2020) Active Problems Problem Noted Date Low serum HDL 05/01/2020 High triglycerides 05/01/2020 [...] as of this encounter (statuses as of 05/01/2020) Resolved Problems Problem Noted Date Resolved Date Need for Tdap vaccination 10/09/2016 04/06/2018 Routine screening for STI (sexually transmitted infection) 0 10/09/2016 04/06/2018 Obesity 12/06/2013 10/09/2016 Overview: ICD10 Diagnosis Term Transportation Solutions Manager Utility documented as of this encounter (statuses as of 05/01/2020) Immunizations Name Administration Dates Next Due Influenza [...] Signs Not on filedocumented in this encounter Miscellaneous Notes Telephone Encounter - Errol Elder RN - 05/01/2020 10:01 AM CSTCalled patient, notified of providers recommendations and lab results. Patient verbalized understanding. ERROL ELDER RN 05/01/2020 10:01 AM SAW OPERATOR Telephone Encounter - Zeenat Boateng FNP - 05/01/2020 7:57 AM CSTPts HgA1C is now 7, which is in the diabetic range, no longer pre-diabetes. It is important for her to make major lifestyle changes, such as the diet plans we talked about yesterday as well as consistent exercise. It is recommended that she become established with a PCP for further management and discussion on medication. Her cholesterol also shows low HDL (good cholesterol) and elevated triglycerides, which can also be improved with lifestyle changes. documented in this encounter Plan of Treatment Date Type Specialty Care Team Description 05/01/2021 Office Visit [facility] Zeenat Boateng FNP [address] [place], [place] [address] [phone] Health Maintenance Due Date Last Done Comments [...] filedocumented in this encounter Visit Diagnoses Diagnosis Type 2 diabetes mellitus without complic ation, without long-term current use of insulin - Primary High triglycerides Pure hyperglyceridemia Low serum HDL documented in this encounter Insurance Payer Benefit Plan Subscriber ID Effective Phone Address Typ e / Group Dates [facility] [id number] 2016-Randee [phone] Medicaid WOMEN nt [address] [place] [address] documented as of this encounter
--- OUTSIDE RECORDS SUMMARY | 2020-06-25 21:37 | XMS REPORT | Summary of Care ---
:1990 Author Organization [facility] Address [address] [place] [address] Care Team Providers Name Role Phone Pcp, Does Not Have A Primary Care Provider Reason for Visit Reason Comments NURSE VISIT Syphillis treatment Encounter Details Date Type Department Care Team Description 05/03/2020 Nurse Visit [facility]- Gigi Torres, [facility] [address] [place], [place] [phone] Syphilis (Primary Dx) [place] Visit, [facility] Nurse [address] [place] [address] Allergies No Known Allergiesdocumented as of this encounter (statuses as of 05/03/2020) Medications Hospital, Clinic, or Ordered Dose Route Frequency Start Date End D ate Status Other Facility Administered Medication penicillin g benzathine 2.4 Million Units IM QWEEKLY 05/03/20 20 05/24/2020 Active (BICILLIN L-A) injection 2.4 Million Units documented as of this encounter (statuses as of 05/03/2020) Active Problems Problem Noted Date Syphilis 05/03/2020 [...] as of this encounter (statuses as of 05/03/2020) Resolved Problems Problem Noted Date Resolved Date Need for Tdap vaccination 10/09/2016 04/06/2018 Routine screening for STI (sexually transmitted infection) 0 10/09/2016 04/06/2018 Obesity 12/06/2013 10/09/2016 Overview: ICD10 Diagnosis Term Dinkey Engine Firer Utility documented as of this encounter (statuses as of 05/03/2020) Immunizations Name Administration Dates Next Due Influenza [...] Sign Reading Time Taken Comments Blood Pressure 111/75 05/03/2020 4:37 PM MD SENIOR RESEARCH SCIENTIST Pulse 64 05/03/2020 4:37 PM MD SENIOR RESEARCH SCIENTIST Temperature 36.8 C (98.2 F) 05/03/2020 4:37 PM MD SENIOR RESEARCH SCIENTIST Respiratory Rate 16 05/03/2020 4:37 PM MD SENIOR RESEARCH SCIENTIST Oxygen Saturation - - Inhaled Oxygen Concentration - - Weight 97.3 kg (214 lb 6.4 oz) 05/03/2020 4:37 PM MD SENIOR RESEARCH SCIENTIST Height - - Body Mass Index 37.98 04/30/2020 8:10 AM MD SENIOR RESEARCH SCIENTIST documented in this encounter Progress Notes Sheridan Perez RN - 05/03/2020 4:00 PM CSTTimesjb Blackwell is a 29 year old female Patient here for Nurse visit: STD/Syphillis treatment #1 of 3 Bicillin tx Pt given bicillin as ordered by provider via IM to bilateral glutes. Patient tolerated treatment well. Patient to rtc in 1 wk for 2 of 3 bicillin treatments. Patient informed to abstain from sex until end of treatment. Patient stated partner will be treated in [facility]. Patient verbalized understanding. documented in this encounter Plan of Treatment Date Type Specialty Care Team Description 05/10/2020 Nurse Visit [facility] Visit, [facility] Nurse 05/01/2021 Office Visit [facility] Zeenat Boateng, HEADER BOSS [address] [address] [phone] Health Maintenance Due Date Last Done Comments [...] Date Dose Rate Site penicillin g Given 05/03/2020 2.4 Million Bilateral G luteus benzathine (BICILLIN 4:56 PM MD SENIOR RESEARCH SCIENTIST Units L-A) injection 2.4 Million Units 2.4 Million Units, Intramuscular, QWEEKLY, 3 doses, First dose on 11/13/20 at 1645, Last dose on Wed05/17/20 at 1645, XIAO, Reason for Anti-Infective: Documented Infection, Documented Infection Site: Other, Other site: systemic, Duration of Therapy: Other (see Comments) documented in this encounter Insurance Payer Benefit Plan Subscriber ID Effective Phone Address Typ e / Group Dates [facility] [id number] 2016-Randee [phone] Medicaid WOMEN nt [address] [place] [address] documented as of this encounter
--- OUTSIDE RECORDS SUMMARY | 2020-06-25 21:37 | XMS REPORT | Summary of Care ---
:1990 Author Organization [facility] Address [address] [place] [address] Care Team Providers Name Role Phone Pcp, Does Not Have A Primary Care Provider Reason for Visit Reason Comments Well Woman Exam Encounter Details Date Type Department Care Team Description 04/30/2020 Office Visit [facility]- Zeenat Boateng Wel l woman exam (Primary Dx); [facility] Screen for STD (sexually transmitted dis ease); [address] Encounter for other general counseling o r advice on contraception; Street [address] A Need for influenza vaccination; [place] [address] 15 BMI 37.0-37.9, adult; [address] Pre-diabetes; [phone] Desire fo r ; Hirsutism Allergies No [...] Obesity 12/06/2013 10/09/2016 Overview: ICD10 Diagnosis Term Commercial Title Examiner Utility documented as of this encounter (statuses [...] Comments Blood Pressure 109/73 04/30/2020 8:10 AM COPIER FIELD SERVICE TECHNICIAN Pulse 61 04/30/2020 8:10 AM COPIER FIELD SERVICE TECHNICIAN Temperature 36.6 C (97.9 F) 04/30/2020 8:10 AM COPIER FIELD SERVICE TECHNICIAN Respiratory Rate 18 04/30/2020 8:10 AM COPIER FIELD SERVICE TECHNICIAN Oxygen Saturation - - Inhaled Oxygen Concentration - - Weight 96.3 kg (212 lb 4.8 oz) 04/30/2020 8:10 AM COPIER FIELD SERVICE TECHNICIAN Height 160 cm (5' 3") 04/30/2020 8:10 AM COPIER FIELD SERVICE TECHNICIAN Body Mass Index 37.61 04/30/2020 8:10 AM COPIER FIELD SERVICE TECHNICIAN documented in this encounter Patient Instructions Patient [...] can make now to protect your future. [employer] last reviewed this educational content on 05/21/201819990968-1112 [employer]. [address] [place] [address], [place] [address]. All rights reserved. This information is not [...] once as part of routine health care. [employer] last reviewed this educational content on 03/21/201719993328-7544 [employer]. All rights reserved. This information is not [...] her child during , childbirth, and . [employer] last reviewed this educational content on 11/19/201819992955-1250 [employer]. [address] [place] [address]. All rights reserved. This information is not intended as a substitute for professional medical care. Always follow your healthcare professional's instructions. Patient Education Clinical Breast Exam Many health organizations recommend a yearly clinical breast exam. This exam may be done by a salesperson floor coverings, family healthcare provider, nurse practitioner, nurse food preparation supervisor, or specially trained nurse. Yearly breast exams [...] Guidelines for having clinical breast exams The [place] College of Obstetricians and Gynecologists recommends that [...] provider about what is best for you. [employer] esther reviewed this educational content on 09/20/201919997338-3599 [employer]. All rights reserved. This information is not [...] breast self-examination (BSE). These experts include the [place] [employer] Society and the [place] Congress of Obstetricians and Gynecologists. Some experts [...] benign. This means they are not cancer. [employer] last reviewed this educational content on 10/20/201919997776-5765 [employer]. All rights reserved. This information is not [...] carcinoma, endocervical adenocarcinoma in situ, or adenocarcinoma.) [employer] last reviewed this educational content on 11/20/201919992065-4051 [employer]. All rights reserved. This information is not [...] want to have children in the future. [employer] last reviewed this educational content on 12/20/201919997026-8547 [employer]. All rights reserved. This information is not intended as a substitute for professional medical care. Always follow your healthcare professional's instructions. ER FIELD SERVICE TECHNICIAN documented in this encounter Progress Notes Zeenat [...] file Gets together: Not on file Attends christianity service: Not on file Active member of [...] and mental health on future pregnancies and/or sales person health. 2. Screen for STD (sexually transmitted [...] vaccination Administered today. VSS provided. - FLU VACC([id number]), 6+ MONTHS, IM, QUAD (FLUZONE/FLULAVAL/FLUARIX) 5. BMI 37.0-37.9, adult The patient is asked to make an attempt to improve diet and exercise patterns to aid in medical management of this problem. Discussed role of obesity in possible PCOS and infertility - LIPID PANEL (31163)(TOTAL CHOLESTEROL, TRIGLYCERIDES, HDL) 6. Pre-diabetes Discussed recommended [...] 2) Desired BCM:none 3) LMP:04/01/2020 4) Last [place]:04/29/2020 5) Last Pap:04/06/2018 Results:negative 6) Tdap in last 10 years?10/09/2016 HPV?no 7) C/O none 8) Patient denies history of physical, emotional, or sexual abuse. Patient states she currently feels safe at home. ER FIELD SERVICE TECHNICIAN documented in this encounter Plan of Treatment Date Type Specialty Care Team Description 05/01/2021 Office Visit [facility] Zeenat Boateng, SUCCESSFACTORS CONSULTANT [address] [place], [place] [address] [phone] Name Type Priority Associated Diagnoses Date/Ti me HIV 1/2 AG-AB WITH REFLEX LAB Routine Screen for STD (sexually 04/30/2020 8:48 AM transmitted disease) COPIER FIELD SERVICE TECHNICIAN GALV ONLY - SYPHILIS LAB Routine Screen for STD (sexu ally 04/30/2020 8:48 AM IGG/IGM transmitted disease) COPIER FIELD SERVICE TECHNICIAN GLYCOSYLATED HEMOGLOBIN LAB Routine Pre-diabetes 04/21 8:48 AM (A1C) COPIER FIELD SERVICE TECHNICIAN LIPID PANEL (22890)(TOTAL LAB Routine BMI 37.0-37.9, adult 04/30/2020 8:48 AM CHOLESTEROL, COPIER FIELD SERVICE TECHNICIAN TRIGLYCERIDES, HDL) GC & CHLAMYDIA AMPLIFIED LAB Routine Screen for STD ( sexually 04/30/2020 8:49 AM ASSAY transmitted disease) COPIER FIELD SERVICE TECHNICIAN Health Maintenance Due Date Last Done Comments PAP SMEAR 04/06/2021 04/06/2018, 03/11/2015, 08/01/2012, Additional history exists Depression Screening 04/30/2021 04/30/2020, 04/30/2020 DTaP,Tdap,and Td Vaccines (3 - 10/09/2026 10/09/2016, 06/21 Td) INFLUENZA VACCINE Completed 04/30/2020 PNEUMOCOCCAL 0-64 YEARS COMBINED Discontinued SERIES VARICELLA VACCINES Discontinued documented as of this encounter Procedures Procedure Name Priority Date/Time Associated Diagnosis Comme nts FLU VACC ([id number]), Routine 04/30/2020 8:27 AM Need for inf luenza 6+ MONTHS, IM, QUAD COPIER FIELD SERVICE TECHNICIAN vaccination documented in this encounter Results Not [...] Address Typ e / Group Dates [facility] [id number] 2016-Prese [phone] Medicaid WOMEN nt [address] [place] [address] documented as of this encounter
--- OUTSIDE RECORDS SUMMARY | 2020-06-25 21:37 | XMS REPORT | Summary of Care ---
:1990 Author Organization [facility] Address [address] [place] [address] Care Team Providers Name Role Phone Pcp, Does Not Have A Primary Care Provider Reason for Visit Reason Comments SYPHILIS Encounter Details Date Type Department Care Team Description 05/03/2020 Telephone [facility]- A Zeenat Neumann, TRUCK WASHER SYPHILIS [address] [place] [address] Counts Include [address] [facility] [phone] [place] [address] Allergies No Known Allergiesdocumented as of this encounter (statuses as of 05/03/2020) Medications No known medicationsdocumented as of this [...] Obesity 12/06/2013 10/09/2016 Overview: ICD10 Diagnosis Term Manpower Development Manager Utility documented as of this encounter [...] this encounter Miscellaneous Notes Telephone Encounter - Zara Rodriguez LVN - 05/03/2020 8:26 AM CSTTimeshimark Blackwell is a 29 year old female Patient informed of results and orders. Stated she has never been diagnosed before. NV made for today at 4pm. elephone Encounter - Zeenat Boateng FNP - 05/03/2020 8:03 AM CSTPlease let patient know her blood work is positive for syphilis. Has she been diagnosed with syphilis before? Our last syphilis test on file was in 2017. Did she ever have any symptoms of an ulcer, rash, etc? As we do not know how long she has had the infection, she will need to RTC for penicillin injections weekly for 3 doses. She will then need repeat blood work at 6, 12, and 24 months. It is VERY important that her partner also get tested and treated. documented in this encounter Plan of Treatment Date Type Specialty Care Team Description 05/03/2020 Nurse Visit [facility] Visit, Mica Nurse 05/01/2021 Office Visit [facility] Zeenat Boateng FNP [address] [place], [place] [address] [phone] Health Maintenance Due Date Last Done Comments [...] Primary Syphilis, unspecified documented in this encounter Insurance Payer Benefit Plan Subscriber ID Effective Phone Address Typ e / Group Dates [facility] [id number] 2016-Prese [phone] Medicaid WOMEN nt [address] [place] [address] documented as of this encounter
--- OUTSIDE RECORDS SUMMARY | 2020-06-25 21:38 | XMS REPORT | Summary of Care ---
:1990 Author Organization [facility] Address [address] [place] [address] Care Team Providers Name Role Phone Pcp, Does Not Have A Primary Care Provider Reason for Visit Reason Comments NURSE VISIT Encounter Details Date Type Department Care Team Description 05/22/[address] [facility] [address] [place] [address] Syphilis (Primary Dx) Worth Visit, [facility] Nurse [address] [place] [address] Allergies No Known Allergiesdocumented as of this encounter (statuses as of 05/22/2020) Medications Hospital, Clinic, or Ordered Dose Route Frequency Start Date End D ate Status Other Facility Administered Medication penicillin g benzathine 2.4 Million Units IM QWEEKLY 05/03/20 20 05/22/2020 Ended (BICILLIN L-A) injection 2.4 Million Units documented as of this encounter (statuses as of 05/22/2020) Active Problems Problem Noted Date Syphilis 05/03/2020 [...] as of this encounter (statuses as of 05/22/2020) Resolved Problems Problem Noted Date Resolved Date Need for Tdap vaccination 10/09/2016 04/06/2018 Routine screening for STI (sexually transmitted infection) 0 10/09/2016 04/06/2018 Obesity 12/06/2013 10/09/2016 Overview: ICD10 Diagnosis Term Mammography Supervisor Utility documented as of this encounter (statuses as of 05/22/2020) Immunizations Name Administration Dates Next Due Influenza [...] been in contact with No / Unsure 05/22/2020 4:17 PM NETWORK SERVICES PROJECT MANAGER someone who was confirmed or suspected to have Coronavirus / COVID-19? documented as of this encounter Last Filed Vital Signs Vital Sign Reading Time Taken Comments Blood Pressure 131/90 05/22/2020 4:18 PM NETWORK SERVICES PROJECT MANAGER Pulse 84 05/22/2020 4:18 PM NETWORK SERVICES PROJECT MANAGER Temperature 37.8 C (100 F) 05/22/2020 4:18 PM NETWORK SERVICES PROJECT MANAGER Respiratory Rate 16 05/22/2020 4:18 PM NETWORK SERVICES PROJECT MANAGER Oxygen Saturation - - Inhaled Oxygen Concentration - - Weight 93.8 kg (206 lb 11.2 oz) 05/22/2020 4:18 PM NETWORK SERVICES PROJECT MANAGER Height 160 cm (5' 3") 05/22/2020 4:18 PM NETWORK SERVICES PROJECT MANAGER Body Mass Index 36.62 05/22/2020 4:18 PM NETWORK SERVICES PROJECT MANAGER documented in this encounter Progress Notes Ori Figueroa RN - 05/22/2020 4:00 PM CSTPatient here for nurse visit: Syphilis treatment #3 Patient given Bicillin injections per provider's orders from clinic stock. Patient tolerated injections well. Patient to RTC in 6 months for lab visit for syphilis testing perguidelines. Patient verbalized understanding. documented in this encounter Plan of Treatment Date Type Specialty Care Team Description 11/20/2020 [address] Construction Inspector [facility]/01/2021 Office Visit [facility] Zeenat Boateng, STRAIGHT KNIFE CUTTER MACHINE [address] [place], [place] [address] [phone] Health Maintenance Due Date Last Done Comments [...] Date Dose Rate Site penicillin g Given 05/22/2020 2.4 Million Bilateral G luteus benzathine (BICILLIN 4:46 PM NETWORK SERVICES PROJECT MANAGER Units L-A) injection 2.4 Million Units 2.4 Million Units, Intramuscular, QWEEKLY, 3 doses, First dose on Wed05/03/20 at 1645, Last dose on Wed05/17/20 at 1645, XIAO, Reason for Anti-Infective: Documented Infection, Documented Infection Site: Other, Other site: systemic, Duration of Therapy: Other (see Comments) Given 05/10/2020 1:47 PM NETWORK SERVICES PROJECT MANAGER 2.4 Million Units Bilateral Gluteus Given 05/03/2020 4:56 PM NETWORK SERVICES PROJECT MANAGER 2.4 Million Units Bilateral Gluteus documented in this encounter Insurance Payer Benefit Plan Subscriber ID Effective Phone Address Typ e / Group Dates [facility] [id number] 2016-Randee [phone] Medicaid WOMEN nt [address] [place] [address] documented as of this encounter
--- OUTSIDE RECORDS SUMMARY | 2020-06-25 21:38 | XMS REPORT | Summary of Care ---
:1990 Author Organization [facility] Address [address] [place] [address] Care Team Providers Name Role Phone Pcp, Does Not Have A Primary Care Provider Reason for Visit Reason Comments Assessment Encounter Details Date Type Department Care Team Description 06/24/2020 Telephone [facility]- A Zeenat Neumann, CNA LTC Assessment [address] [facility] [address] [place] [address] [facility] [phone] [place], [place] [address] [phone] Allergies No Known Allergiesdocumented as of this encounter (statuses as of 06/24/2020) Medications No known medicationsdocumented as of this encounter (statuses as of 06/24/2020) Active Problems Problem Noted Date Syphilis 05/03/2020 [...] as of this encounter (statuses as of 06/24/2020) Resolved Problems Problem Noted Date Resolved Date Need for Tdap vaccination 10/09/2016 04/06/2018 Routine screening for STI (sexually transmitted infection) 0 10/09/2016 04/06/2018 Obesity 12/06/2013 10/09/2016 Overview: ICD10 Diagnosis 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 Patient reports soaking more raphael 1 pad an hour for the last 5 days. Patient denies severe pain and or fever. Patient reports feeling dizzy andlightheaded. Advised patient to follow-up with er for evaluation and call us to schedule er follow up. Patient verbalized understanding. ERROL ELDER RN 06/24/2020 4:49 PM HALMOLOGIST RETINA SPECIALIST Telephone Encounter - Cristin Culver - 06/24/2020 12:17 PM CSTTimesjb Blackwell is a 29 year old female Patient wants to speak to nurse states she has been on her cycle for two weeks and having cramping when she goes to urine documented in this encounter Plan of Treatment Date Type Specialty Care Team Description 11/20/2020 Inflatable Buildings Laminator Visit [facility] Kacey, Sophiesreekanth 05/01/2021 Office Visit [facility] Zeenat Boateng, CNA LTC [address] [place], [place] [address] [phone] Health Maintenance Due Date Last Done Comments [...] Typ e / Group Dates [facility] [id number] 2016-Randee [phone] [address] Medicaid WOMEN nt [address] [place] [address] documented as of this encounter
[2020-06-25 22:36] LABS: Absolute Lymphocytes (CBC) 2.4 K/uL (0.7-4.9); Basophils % 0.8 % (0-1.3); Lymphocytes % 38.7 % (15.3-44.8); MPV 10.1 fL (7.6-11.3)
[2020-06-25 22:57] LABS: Urine Blood 3+ (NEG); Urine Glucose 2+ (NEG); Urine Protein NEGATIVE (NEG); Urine pH 5.5 (5.0-7.0)
[2020-06-26 00:11] LABS: BUN Blood Urea Nitrogen 14 mg/dL (7-18); Bicarbonate 27 mmol/L (21-32); Glucose Level 877 mg/dL (74-106); HCG, Quantitative < 1 mIU/mL (1-3); Potassium 4.8 mmol/L (3.5-5.1); Sodium Level 125 mmol/L (136-145)
--- NOTE | 2020-06-26 00:28 | ER ---
Nurse's Notes [facility] Name: Ping Brown Age: 29 yrs Sex: Female : 1990 Arrival Date: 06/25/2020 Time: 21:18 Bed 19 Private MD: Diagnosis: Hyperglycemia, unspecified-New onset diabetes;Abnormal uterine and vaginal bleeding, unspecified Presentation: 06/25 21:25 Ebola Screen: Patient negative for fever greater than or equal to 101.5 degrees ca1 Fahrenheit, and additional compatible Ebola Virus Disease symptoms Patient denies exposure to infectious person. Patient denies travel to an Ebola-affected area in the 21 days before illness onset. No symptoms or risks identified at this time. Risk Assessment: Do you want to hurt yourself or someone else? Patient reports no desire to harm self or others. 21:25 Acuity: MARIA C 3 ca1 21:38 Chief complaint: Patient states: I have been on my period for 2 weeks. Has been steady ca1 flow and hasn't stopped. Reports cramping, dizziness and lightheaded. Coronavirus screen: Client denies travel out of the [place] in the last 14 days. At this time, the client does not indicate any symptoms associated with coronavirus-19. Initial Sepsis Screen: Does the patient meet any 2 criteria? No. Patient's initial sepsis screen is negative. Does the patient have a suspected source of infection? No. Patient's initial sepsis screen is negative. Onset of symptoms was June 25, 2020. 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 - Social history:: Smoking status: Patient reports the use of cigarette tobacco products, denies chronic smoking, but will smoke occasionally. Screenin:00 Abuse screen: Denies threats or abuse. Denies injuries from another. Nutritional zb screening: No deficits noted. Tuberculosis screening: No symptoms or risk factors identified. Fall Risk None identified. Assessment: 21:30 General: Appears in no apparent distress. Behavior is calm, cooperative, appropriate zb for age. Pain: Denies pain. Neuro: Level of Consciousness is awake, alert, obeys commands, Oriented to person, place, time, situation. Cardiovascular: Capillary refill < 3 seconds in bilateral fingers Patient's skin is warm and dry. Respiratory: Airway is patent Respiratory effort is even, unlabored, Respiratory pattern is regular, symmetrical. GI: No signs and/or symptoms were reported involving the gastrointestinal system. : Reports cramping, vaginal bleeding that is bright red, moderate flow. : Denies burning with urination, inability to void. EENT: No signs and/or symptoms were reported regarding the EENT system. Derm: Skin is intact, is healthy with good turgor, Skin is dry, Skin is normal, Skin temperature is warm. Musculoskeletal: Circulation, motion, and sensation intact. Capillary refill < 3 seconds, in bilateral fingers. Range of motion: intact in all extremities. 22:30 Reassessment: Patient appears in no apparent distress at this time. Patient and/or zb family updated on plan of care and expected duration. Pain level reassessed. Patient is alert, oriented x 3, equal unlabored respirations, skin warm/dry/pink. no c/o at this time. pt up ad sienna , ambulates well to restroom. 23:16 Reassessment: lab collected labs. zb 06/26 00:16 Reassessment: Patient and/or family updated on plan of care and expected duration. Pain ll2 level reassessed. Patient is alert, oriented x 3, equal unlabored respirations, skin warm/dry/pink. 01:20 Reassessment: Patient and/or family updated on plan of care and expected duration. Pain ll2 level reassessed. Patient is alert, oriented x 3, equal unlabored respirations, skin warm/dry/pink. 02:34 Reassessment: Patient and/or family updated on plan of care and expected duration. Pain ll2 level reassessed. Patient is alert, oriented x 3, equal unlabored respirations, skin warm/dry/pink. attempted to give report, requested to have the nurse call me back. 02:44 Reassessment: report given to DOREEN mejia. ll2 Vital Signs: 06/25 21:38 BP 122 / 78; Pulse 78; Resp 16 S; Temp 97.9(TE); Pulse Ox 97% on R/A; Weight 90.72 kg ca1 (R); Height 5 ft. 3 in. (160.02 cm) (R); Pain 5/10; 22:30 BP 115 / 62; Pulse 95; Resp 16; Pulse Ox 95% on R/A; zb 23:30 BP 118 / 63; Pulse 65; Resp 18; Pulse Ox 99% on R/A; zb 06/26 00:15 BP 113 / 72; Pulse 68; Resp 16; Pulse Ox 95% on R/A; ll2 06/25 21:38 Body Mass Index 35.43 (90.72 kg, 160.02 cm) ca1 ED Course: 06/25 21:18 Patient arrived in ED. cf2 21:27 Triage completed. ca1 21:29 Arm band placed on right wrist. ca1 21:30 Patient has correct armband on for positive identification. Bed in low position. Call zb light in reach. Side rails up X 1. Pulse ox on. NIBP on. Door closed. Noise minimized. Warm blanket given. 21:30 Inserted saline lock: 20 gauge in right forearm, using aseptic technique. Blood zb collected. 21:42 Nona Bernard RN is Primary Nurse. zb 21:42 Trevon Hart NP is PHCP. pm1 21:42 Adama Werner MD is Attending Physician. pm1 21:43 Notified ED physician of a critical lab result(s). D-Dimer 713. zb 06/26 00:11 Notified Nurse Practitioner and/or Physician Canvas Shrinker of a critical lab result(s), sg glucose greater than 800. 00:27 Logan Werner MD is Hospitalizing Provider. pm1 00:59 COVID swab sent to lab. sg 03:03 No provider procedures requiring assistance completed. Patient admitted, IV remains in ll2 place. Administered Medications: 00:16 Drug: NS 0.9% 1000 ml Route: IV; Rate: 1000 ml; Site: right forearm; zb 01:06 Follow up: Response: No adverse reaction; IV Status: Completed infusion; IV Intake: ll2 1000ml 00:31 Drug: Insulin Regular Human 10 units {Co-Signature: ll2 (Mercedes Morgan RN).} Route: zb IVP; Site: right forearm; 01:06 Follow up: Response: No adverse reaction ll2 02:00 Drug: NS 0.9% 1000 ml Route: IV; Rate: 1000 ml; Site: right antecubital; ll2 Point of Care Testing: Blood Glucose: 02:59 Blood Glucose: 385 mg/dL; ll2 Ranges: Intake: 01:06 IV: 1000ml; Total: 1000ml. ll2 Outcome: 00:27 Decision to Hospitalize by Provider. pm1 03:03 Admitted to Med/surg accompanied by tech, via wheelchair, Report called to DOREEN mejia ll2 03:04 Condition: stable ll2 03:04 Instructed on the need for admit. 03:04 Patient left the ED. ll2 Signatures: Isra Boogie RN RN sg Trevon Hart NP GEOSCIENCE PROFESSOR pm1 Liset Cadet RN RN ca1 Blanka Simpson cf2 Mercedes Morgan RN RN ll2 Nona Bernard RN RN zb Mercedes Morgan RN ll2 Corrections: (The following items were deleted from the chart) 06/25 21:28 21:25 Pulse 118bpm; Resp 16bpm; Spontaneous; Pulse Ox 98% RA; Temp 99.9F Temporal; ca1 74.39 kg Reported; Height 5 ft. 1 in. 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 Denies ca1 N/V. Reports diarrhea. Pt crying in triage. Reports pain with movement and breathing. ca1 21:25 Coronavirus screen: Client denies travel out of the [place] in the last 14 days. ca1 diarrhea, Client presents with at least one sign or symptom that may indicate coronavirus-19. Standard/surgical mask placed on the client. Provider contacted for isolation considerations. ca1 : Initial Sepsis Screen: Does the patient meet any 2 criteria? No. Patient's ca1 initial sepsis screen is negative. Does the patient have a suspected source of infection? No. Patient's initial sepsis screen is negative. 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 Denies ca1 N/V. Reports diarrhea. Pt crying in triage. Reports pain with movement and breathing. ca1 21: 21:25 Method Of Arrival: Wheelchair ca1 ca1 21: 21:25 BP 101 / 64; Pulse 118bpm; Resp 16bpm; Spontaneous; Pulse Ox 98% RA; Temp 99.9F ca1 Temporal; 74.39 kg Reported; Height 5 ft. 1 in. Reported; BMI: 30.9; Pain 9/10; ca1 21:31 21:25 Social history: Smoking status: Patient denies any tobacco usage or history of. ca1 ca1 : 21:25 Immunization history: Flu vaccine is not up to date. ca1 ca1 : 21:28 Allergies: No Known Allergies; ca1 ca1 21:28 PMHx: None; ca1 ca1 : 21:28 PSHx: gastric Sleeve; ca1 ca1 21: 21:28 PSHx: Cholecystectomy; ca1 ca1 : 21:28 PSHx: ; ca1 ca1 : 21:28 PSHx: tummy tuck; ca1 ca1 21:31 21:29 Home Meds: Alprazolam Oral; ca1 ca1 21:31 21:29 Home Meds: Seroquel Oral; ca1 ca1 21:31 21:29 Home Meds: Adderall XR Oral; ca1 ca1 21:31 21:29 LMP 06/04/2020 ca1 ca1 23:16 22:30 Reassessment: lab collected labs. grazyna geronimo
--- NOTE | 2020-06-26 00:28 | EDPHYS ---
Physician Documentation [facility] Name: Ping Brown Age: 29 yrs Sex: Female : 1990 Arrival Date: 06/25/2020 Time: 21:18 Bed 19 Private MD: ED Physician Adama Werner HPI: 06/25 21:44 This 29 yrs old Black Female presents to ER via Ambulatory with complaints of Vaginal pm1 Bleeding. 21:44 The patient presents with vaginal bleeding that is ongoing longer than her normal pm1 menses. Onset: The symptoms/episode began/occurred 2 week(s) ago. Modifying factors: The symptoms are alleviated by nothing, the symptoms are aggravated by nothing. Associated signs and symptoms: Pertinent positives: cramping, which is typical for her menstrual cycles, Pertinent negatives: dysuria, fever, abdominal pain. Severity of symptoms: in the emergency department the symptoms are unchanged. The patient's method of control includes nothing. The patient has experienced similar episodes in the past, chronically, She has been dealing with irregular menses for many years. The patient has been recently seen by a physician: the patient's primary care provider, 1 month(s) ago, [facility]. 06/26 00:31 Patient's labs drawn 1 month ago at [facility] were wnls per provider. Polydipsia, pm1 polyuria, polyphagia onset after that visit. DIRECTOR OF RECRUITING: 06/25 21:40 LMP 06/09/2020 ca1 Historical: - Allergies: 21:40 No Known Allergies; ca1 - Home Meds: 21:40 None [Active]; ca1 - PMHx: 21:40 None; ca1 - PSHx: 21:40 None; ca1 - Immunization history:: Flu vaccine is up to date. - Social history:: Smoking status: Patient reports the use of cigarette tobacco products, denies chronic smoking, but will smoke occasionally. ROS: 21:44 Positive for vaginal bleeding, Negative for urinary symptoms. pm1 21:44 Constitutional: Negative for fever, chills, and weight loss, Cardiovascular: Negative for chest pain, palpitations, and edema, Respiratory: Negative for shortness of breath, cough, wheezing, and pleuritic chest pain, Abdomen/GI: Negative for abdominal pain, nausea, vomiting, diarrhea, and constipation, Back: Negative for injury and pain, MS/Extremity: Negative for injury and deformity, Skin: Negative for injury, rash, and discoloration. 06/26 00:28 Endocrine: Positive for polydipsia, polyphagia, polyuria, for the past 1 month. pm1 Exam: 06/25 21:44 Constitutional: This is a well developed, well nourished patient who is awake, alert, pm1 and in no acute distress. Head/Face: Normocephalic, atraumatic. Back: No spinal tenderness. No costovertebral tenderness. Full range of motion. Skin: Warm, dry with normal turgor. Normal color with no rashes, no lesions, and no evidence of cellulitis. MS/ Extremity: Pulses equal, no cyanosis. Neurovascular intact. Full, normal range of motion. Cardiovascular: Exam negative for acute changes, Rate: normal, Rhythm: regular, Pulses: no pulse deficits are appreciated, Edema: is not appreciated. Respiratory: Exam negative for acute changes, respiratory distress, shortness of breath. Abdomen/GI: Exam negative for acute changes, Inspection: abdomen appears normal, Palpation: abdomen is soft and non-tender, in all quadrants. Neuro: Exam negative for acute changes, Orientation: is normal, Mentation: is normal, Motor: is normal, moves all fours. 06/26 00:28 Head/face: Excessive facial hair present under mask. pm1 Vital Signs: 06/25 21:38 BP 122 / 78; Pulse 78; Resp 16 S; Temp 97.9(TE); Pulse Ox 97% on R/A; Weight 90.72 kg ca1 (R); Height 5 ft. 3 in. (160.02 cm) (R); Pain 5/10; 22:30 BP 115 / 62; Pulse 95; Resp 16; Pulse Ox 95% on R/A; zb 23:30 BP 118 / 63; Pulse 65; Resp 18; Pulse Ox 99% on R/A; zb 06/26 00:15 BP 113 / 72; Pulse 68; Resp 16; Pulse Ox 95% on R/A; ll2 06/25 21:38 Body Mass Index 35.43 (90.72 kg, 160.02 cm) ca1 MDM: 06/25 21:43 Patient medically screened. pm1 22:39 Data reviewed: vital signs. pm1 06/26 00:22 Counseling: I had a detailed discussion with the patient and/or guardian regarding: the pm1 historical points, exam findings, and any diagnostic results supporting the discharge/admit diagnosis, lab results, the need for further work-up and treatment in the hospital. 00:25 Physician consultation: Luis DOTSON was called at 00:26, was contacted at 00:26, pm1 regarding admission, patient's condition, and will see patient in ED. 06/25 21:44 Order name: Quantitative Hcg; Complete Time: 00:57 pm1 06/25 21:44 Order name: Basic Metabolic Panel; Complete Time: 00:57 pm1 06/25 21:44 Order name: CBC with Diff; Complete Time: 22:42 pm1 06/25 22:26 Order name: Urine --Ancillary (enter results); Complete Time: 22:59 tt3 06/25 22:26 Order name: Urine Dipstick--Ancillary (enter results); Complete Time: 22:59 tt3 06/26 00:25 Order name: Lipid Profile la1 06/26 00:31 Order name: Lipase; Complete Time: 00:57 EDMS 06/26 01:44 Order name: LDL, Direct; Complete Time: 02:40 EDMS 06/26 02:20 Order name: SARS-COV-2 RT PCR EDMS 06/25 21:44 Order name: Urine Test (obtain specimen); Complete Time: 22:22 pm1 06/25 21:44 Order name: IV Saline Lock; Complete Time: 22:22 pm1 06/25 21:44 Order name: Labs collected and sent; Complete Time: 22:22 pm1 06/25 21:44 Order name: Urine Dipstick-Ancillary (obtain specimen); Complete Time: 22:22 pm1 06/26 01:50 Order name: Misc. Order: recheck BGL after second bolus and call Luis with results pleasela1 Administered Medications: 00:16 Drug: NS 0.9% 1000 ml Route: IV; Rate: 1000 ml; Site: right forearm; zb : Follow up: Response: No adverse reaction; IV Status: Completed infusion; IV Intake: ll2 1000ml 00:31 Drug: Insulin Regular Human 10 units {Co-Signature: ll2 (Mercedes Morgan RN).} Route: zb IVP; Site: right forearm; :06 Follow up: Response: No adverse reaction ll2 02:00 Drug: NS 0.9% 1000 ml Route: IV; Rate: 1000 ml; Site: right antecubital; ll2 Point of Care Testing: Blood Glucose: 02:59 Blood Glucose: 385 mg/dL; ll2 Ranges: Critical Glucose Levels:Adult <50 mg/dl or >400 mg/dl <40 mg/dl or >180 mg/dl Disposition: : Co-signature as Attending Physician, Adama Werner MD. rn Disposition: 06/26/20 00:27 Hospitalization ordered by Logan Werner for Observation. Preliminary diagnosis are Hyperglycemia, unspecified - New onset diabetes, Abnormal uterine and vaginal bleeding, unspecified. - Bed requested for Telemetry/MedSurg (observation). - Status is Observation. ll2 - Condition is Stable. - Problem is new. - Symptoms have improved. Signatures: Dispatcher [employer] EDMS Yue Kern RN RN mw Nieto, Roman, MD MD rn Attema, Lee, RELATIONSHIP ASSOCIATE-C RELATIONSHIP ASSOCIATE-Cla1 Trevon Hart, ROTARY KILN OPERATOR ROTARY KILN OPERATOR pm1 Liset Cadet RN RN ca1 Mercedes Morgan RN RN ll2 Nona Bernard RN RN zb Mercedes Morgan RN ll2 Corrections: (The following items were deleted from the chart) 06/25 21:29 21:28 Home Meds: None; ca1 ca1 21:25 Social history: Smoking status: Patient denies any tobacco usage or history of. ca1 ca1 : 21:25 Immunization history: Flu vaccine is not up to date. ca1 ca1 : 21:28 Allergies: No Known Allergies; ca1 ca1 : 21:28 PMHx: None; ca1 ca1 : 21:28 PSHx: gastric Sleeve; ca1 ca1 : 21:28 PSHx: Cholecystectomy; ca1 ca1 21: PSHx: ; ca1 ca1 21:28 PSHx: tummy tuck; ca1 ca1 : 21:29 Home Meds: Alprazolam Oral; ca1 ca1 : 21:29 Home Meds: Seroquel Oral; ca1 ca1 21:29 Home Meds: Adderall XR Oral; ca1 ca1 06/26 00:31 00:18 LIPASE+C.LAB.BRZ ordered. EDMS EDMS 00:32 01 21:44 The patient has not recently seen a physician, pm1 pm1 06/26 01:02 00:26 CORONAVIRUS+MR.LAB.BRZ ordered. EDSD EDMS 02:22 00:27 Hospitalization Ordered by Logan Werner MD for Observation. Preliminary mw diagnosis is Hyperglycemia, unspecified - New onset diabetes; Abnormal uterine and vaginal bleeding, unspecified. Bed requested for Telemetry/MedSurg (observation). Status is Observation. Condition is Stable. Problem is new. Symptoms have improved. pm1 03:04 02:22 06/26/2020 00:27 Hospitalization Ordered by Logan Werner MD for Observation. ll2 Preliminary diagnosis is Hyperglycemia, unspecified - New onset diabetes; Abnormal uterine and vaginal bleeding, unspecified. Bed requested for Telemetry/MedSurg (observation). Status is Observation. Condition is Stable. Problem is new. Symptoms have improved. mw
[2020-06-26] MEDS ORDERED: NA CHLORIDE 0.9% 1,000 ML ONE ×2 (00:29→00:42)
[2020-06-26 00:38] LABS: Lipase 138 U/L (73-393)
[2020-06-26] MEDS ORDERED: INSULIN -REGULAR HUMAN 50 UNIT/0.5 ML ML ONE (00:42)
[2020-06-26 01:43] LABS: HDL Cholesterol 38 mg/dL (40-60)
[2020-06-26 01:54] LABS: LDL, Direct 43 mg/dL (100-129)
--- NOTE | 2020-06-26 02:20 | P.HP ---
Certification for Inpatient Patient admitted to: Observation With expected LOS: <2 Midnights Patient will require the following post-hospital care: None Practitioner: I am a practitioner with admitting privileges, knowledge of patient current condition, hospital course, and medical plan of care. Services: Services provided to patient in accordance with Admission requirements found in Title 42 Section 412.3 of the Code of Federal Regulations <Luis Morris - Last Filed: 06/26/20 02:17> Patient History Date of Service: 06/26/20 Primary Care Provider: none Reason for admission: Hyperglycemia History of Present Illness: 29-year-old Afro-British female with no known medical history presented to the emergency department for complaint of vaginal bleeding that has not stopped and 15 days since her menstrual cycle began. Patient was evaluated with some basic labs which revealed sodium 125, chloride 91, creatinine 1.34, GFR 57, glucose 877. Patient was then questioned further about her history and was found to have polydipsia, polyphasia, polyuria over the course of the last 1 month. Patient has an aunt who is diabetic but no other family members. Patient's blood was also very lipemic, lipid panel was drawn which revealed triglycerides 711, lipase normal. No anion gap or acidosis noted, patient with no history of diabetes. ED provider wishes to admit patient for further evaluation and management. 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 - Family History Family History: Reviewed- Non-Contributory - Social History Smoking Status: Current every day smoker Counseled patient to stop smoking for: less than 10 minutes Alcohol use: Yes CD- Drugs: No Caffeine use: No Place of Residence: Home <Luis Morris - Last Filed: 06/26/20 02:17> Date of Service: 06/26/20 <Logan Werner - Last Filed: 06/26/20 22:44> Allergies No Known Allergies Allergy (Verified 06/26/20 03:26) Review of Systems Unremarkable <Luis Morris - Last Filed: 06/26/20 02:17> Physical Examination - Physical Exam General: Alert, In no apparent distress HEENT: Atraumatic, PERRLA, Mucous membr. moist/pink, EOMI, Sclerae nonicteric Neck: Supple, 2+ carotid pulse no bruit, No LAD, Without JVD or thyroid abnormality Respiratory: Clear to auscultation bilaterally, Normal air movement Cardiovascular: Regular rate/rhythm, Normal S1 S2 Gastrointestinal: Normal bowel sounds, No tenderness Musculoskeletal: No tenderness Integumentary: No rashes Neurological: Normal gait, Normal speech, Normal strength at 5/5 x4 extr, Normal tone, Normal affect Lymphatics: No axilla or inguinal lymphadenopathy - Studies Laboratory Data (last 24 hrs) 06/26/20 00:40: Triglycerides 711 H, Cholesterol 163, LDL Cholesterol Direct 43 L, HDL Cholesterol 38 L, Cholesterol/HDL Ratio 4.29 06/26/20 00:18: Lipase Cancelled 06/25/20 23:10: Sodium 125 L, Potassium 4.8, BUN 14, Creatinine 1.34 H, Glucose 877 H*, Lipase 138 06/25/20 22:23: WBC 6.2, Hgb 12.4, Hct 40.0, Plt Count 264 <Luis Morris - Last Filed: 06/26/20 02:17> - Studies Laboratory Data (last 24 hrs) 06/26/20 04:10: Sodium 137, Potassium 4.1, BUN 12, Creatinine 0.86, Glucose 376 H, Magnesium 2.1 06/26/20 00:40: Triglycerides 711 H, Cholesterol 163, LDL Cholesterol Direct 43 L, HDL Cholesterol 38 L, Cholesterol/HDL Ratio 4.29 06/26/20 00:18: Lipase Cancelled 06/25/20 23:10: Sodium 125 L, Potassium 4.8, BUN 14, Creatinine 1.34 H, Glucose 877 H*, Lipase 138 <Logan Werner - Last Filed: 06/26/20 22:44> Assessment and Plan - Plan Assessment New onset diabetes mellitus type 2 with hyperglycemia Hypertriglyceridemia Plan New onset diabetes mellitus type 2 with hyperglycemia: Repeat chemistry and A1c with morning labs. A.c. HS Accu-Cheks insulin therapy. 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 DVT prophylaxis with Lovenox 40 mg subcutaneous once daily. Hypertriglyceridemia: Initiated fibrate therapy, discussed dietary and lifestyle changes that will be required, patient will need to follow up with primary care doctor for further evaluation and management. Discharge Plan: Home Plan to discharge in: 24 Hours - Advance Directives Does patient have a Living Will: No Does patient have a Durable POA for Healthcare: No - Code Status/Comfort Care Code Status Assessed: Yes (Full code) Critical Care: No Time Spent Managing Pts Care (In Minutes): 55 <Luis Morris - Last Filed: 06/26/20 02:17> - Plan Agree with plan of care as noted above by Luis Morris. In addition, pt with irregular periods over the past several months, at times missing a period, followed by a heavy / prolonged period. Currently has had vaginal bleeding for 15 days. This morning she reports very minimal to no bleeding now. Will obtain transvaginal U/S for further evaluation. <Logan Werner - Last Filed: 06/26/20 22:44>
[2020-06-26] MEDS ORDERED: ONDANSETRON 4 MG/2 ML VIAL IV PRN (03:19)
[2020-06-26] MEDS ORDERED: ACETAMINOPHEN 500 MG TAB PO PRN (03:19)
[2020-06-26 03:21] VITALS: O2SAT 95
[2020-06-26 03:27] VITALS: BMI 34.4
[2020-06-26] MEDS: NA CHLORIDE 0.9% 1,000 ML IV SCH ×3 (03:46→16:07)
[2020-06-26] MEDS: INSULIN -REGULAR HUMAN 50 UNIT/0.5 ML ML SQ SCH ×4 (03:53→16:07)
[2020-06-26 05:26] LABS: BUN Blood Urea Nitrogen 12 mg/dL (7-18); Bicarbonate 20 mmol/L (21-32); Glucose Level 376 mg/dL (74-106); Magnesium 2.1 mg/dL (1.8-2.4); Potassium 4.1 mmol/L (3.5-5.1); Sodium Level 137 mmol/L (136-145)
[2020-06-26] MEDS ORDERED: D50W 25 GM/50 ML SYRINGE IV PRN (06:20)
[2020-06-26] MEDS ORDERED: GLUCAGON 1 MG/VIAL IM PRN (06:20)
[2020-06-26] MEDS ORDERED: ENOXAPARIN 40 MG/0.4 ML SQ SCH (09:00)
[2020-06-26] MEDS ORDERED: FENOFIBRATE 48 MG TAB PO SCH (09:00)
[2020-06-26] MEDS: NPH (HUMAN) 100 UNITS/ML INSULIN SQ SCH ×2 (09:37→16:07)
--- NOTE | 2020-06-26 14:08 | RAD REPORT ---
EXAM DESCRIPTION: US - Transvaginal Study Probe - 06/26/2020 1:52 pm CLINICAL HISTORY: dysfunctional bleeding Pelvic pain. COMPARISON: No comparisons FINDINGS: The uterus is normal in size, shape and echotexture. The uterus measures 6.0 x 3.2 x 3.2 c m. The endometrial stripe measures 3 mm, normal. Both ovaries are normal in size, shape and echotexture. The right ovary measures 4.5 x 3.0 cm. The left ovary measures 4.8 x 2.6 cm. No ovarian or parovarian lesions. No adnexal masses. Normal Doppler blood flow was demonstrated to both ovaries. No significant pelvic ascites. IMPRESSION: Unremarkable study.
[2020-06-26] MEDS ORDERED: D50W 25 GM/50 ML VIAL IV PRN (16:00)
[2020-06-26 17:34] VITALS: BP 120/60; TEMP 97.9
--- NOTE | 2020-06-26 22:49 | P.DS ---
Admission Date: 06/26/20 Discharge Date: 06/26/20 Primary Care Provider: none Disposition: ROUTINE DISCHARGE Discharge Condition: GOOD Reason for Admission: Hyperglycemia Procedures: Transvaginal U/S (06/26/20): both ovaries normal in size, shape, and echotexture. No ovarian or parovarian lesions. no adnexal masses. normal doppler blood flow to both ovaries. Unremarkable study. A1c: 12.2 (06/26/20) Problem List Diabetes mellitus, type 2 dysfunctional uterine bleeding, PCOS ALANNAH, resolved Brief History of Present Illness: 29yo F, no known PMH, presented to ED with complaint of vaginal bleeding x 15 days since her menstrual cycle began. Labwork revealed sodium 125, Cr: 1.34, G. She also reported polydipsia, polyphagia, polyuria over the last 1 month. She reports an aunt with diabetes, but nobody else in the family. Lipid panel also notable for T, normal lipase, no anion gap. Hospital Course: On further discussion, patient reported facial hairs / hirsutism like features. This, along with her obesity and diabetes was concerning for PCOS. She also reported irregular menstrual periods over the past several months alternating from amenorrhea vs prolonged / heavy periods. A transvaginal U/S was reported as unremarkable. It was suspected that patient has PCOS. She was counselled on OCPs but stated she did not want to take any form of control at this time. Her glucose improved with insulin and was stable in the high 100s-low 200s. She was feeling well and wanting to be discharged home. She was discharged with prescriptions for NPH 15u qHS, metformin 500 BID, and fenofibrate. She is to f/u with her PCP in the next week with a glucose log. She was highly encouraged to f/u with OBGYN to further discuss OCPs. She was counselled on diabetic diet and insulin use. Vital Signs/Physical Exam: Temp Pulse Resp BP Pulse Ox 97.9 F 54 19 120/60 98 06/26/20 16:00 06/26/20 16:00 06/26/20 16:00 06/26/20 16:00 06/26/20 16:00 General: Alert, In no apparent distress, Obese Respiratory: Clear to auscultation bilaterally, Normal air movement Cardiovascular: Regular rate/rhythm, Normal S1 S2 Gastrointestinal: Normal bowel sounds, Soft and benign, Non-distended, No tenderness Integumentary: No tenderness/swelling Neurological: Normal speech, Normal affect Laboratory Data at Discharge: WBC 6.2 K/uL (4.3-10.9) 06/25/20 22:23 Hgb 12.4 g/dL (12.0-15.0) 06/25/20 22:23 Hct 40.0 % (36.0-45.0) 06/25/20 22:23 Plt Count 264 K/uL (152-406) 06/25/20 22:23 Sodium 137 mmol/L (136-145) 06/26/20 04:10 Potassium 4.1 mmol/L (3.5-5.1) 06/26/20 04:10 BUN 12 mg/dL (7-18) 06/26/20 04:10 Creatinine 0.86 mg/dL (0.55-1.3) 06/26/20 04:10 Glucose 376 mg/dL (74-106) H 06/26/20 04:10 Magnesium 2.1 mg/dL (1.8-2.4) 06/26/20 04:10 Triglycerides 711 mg/dL (<150) H 06/26/20 00:40 Cholesterol 163 mg/dL (<200) 06/26/20 00:40 LDL Cholesterol Direct 43 mg/dL (100-129) L 06/26/20 00:40 HDL Cholesterol 38 mg/dL (40-60) L 06/26/20 00:40 Cholesterol/HDL Ratio 4.29 06/26/20 00:40 Lipase Cancelled 06/26/20 00:18 Home Medications: Fenofibrate [Tricor*] 48 mg PO DAILY 30 Days #30 tab 06/26/20 Insulin NPH Human Isophane [Novolin N] 15 unit SQ BEDTIME 30 Days #4 vial 06/26/20 Metformin HCl [Glucophage] 500 mg PO BID 30 Days #60 tablet 06/26/20 New Medications: Metformin HCl [Glucophage] 500 mg PO BID 30 Days #60 tablet Insulin NPH Human Isophane [Novolin N] 15 unit SQ BEDTIME 30 Days #4 vial Fenofibrate [Tricor*] 48 mg PO DAILY 30 Days #30 tab Patient Discharge Instructions: your bleeding is likely due to PCOS. You were also found to have high glucose consistent with diabetes. You have been discharged with insulin NPH - 15 units at bedtime, and metformin 500mg twice a day. Continue to check your glucose at least twice a day (fasting and before dinner), keep track and take to review with your PCP. If you have continued bleeding, recommend f/u with your OBGYN to further discuss control pills. Diet: ADA Activity: Ad sienna Followup: NONE,NONE [Primary Care Provider] - Time spent managing pt's care (in minutes): 35
== END 2020-06-26 19:09 | disposition home or self-care (01) | DRG 760 ==
LOC: ER 21:18 → ERHOLD 06-26 01:44 → 2ND 06-26 02:50 → OBSVTOIN 06-26 07:57
PROVIDERS: ADMIT Hospitalist; ATTEND Hospitalist
DX: E28.2 Polycystic ovarian syndrome (principal); N17.9 Acute kidney failure, unspecified; E11.65 Type 2 diabetes mellitus with hyperglycemia; L68.0 Hirsutism; E78.1 Pure hyperglyceridemia; F17.210 Nicotine dependence, cigarettes, uncomplicated; E66.9 Obesity, unspecified; Z68.34 Body mass index [BMI] 34.0-34.9, adult; Z79.4 Long term (current) use of insulin; Z79.899 Other long term (current) drug therapy; Z20.822 Contact with and (suspected) exposure to COVID-19
CPT/HCPCS: 36415; 76830; 80048; 80061; 81003; 81025; 82947; 83036; 83690; 83735; 84439; 84443; 84702; 85025; 96361; 96374; 99285; G0378; J1650; J1815; J7030; U0003

== ENCOUNTER 2020-08-12 15:47 | Emergency (ER) | payer SELFPAY ==
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
[2020-08-12 16:35] LABS: Urine Blood NEGATIVE (NEG); Urine Glucose 2+ (NEG); Urine Protein NEGATIVE (NEG); Urine pH 5.5 (5.0-7.0)
[2020-08-12] MEDS ORDERED: NA CHLORIDE 0.9% 1,000 ML ONE (18:50)
[2020-08-12 19:14] LABS: Urine Amorphous Sediment 1+ /HPF (NONE SEEN); Urine Bacteria <20 /HPF (<20); Urine RBC NONE SEEN /HPF (NONE SEEN)
--- NOTE | 2020-08-12 19:15 | RAD REPORT ---
EXAM DESCRIPTION: CT - Stone Protocol - 08/12/2020 6:46 pm CLINICAL HISTORY: Abdominal pain./flank pain COMPARISON: None. TECHNIQUE: Computed axial tomography of the abdomen pelvis was obtained without oral or IV contrast. Lack of IV and oral contrast limits evaluation of solid organs, bowel, and vessels. Coronal reformat tabatha images were obtained and reviewed. All CT scans are performed using dose optimization technique as appropriate and may include automated exposure control or mA/KV adjustment according to patient size. FINDINGS: A renal calculus is not seen. An ureteral calculus is not noted. A bladder calculus is not present. The liver, spleen, pancreas and adrenals appear grossly normal There is no evidence of diverticulitis. The appendix appears normal Retroverted uterus. Small amount of free fluid pelvis probably physiologic. Tiny umbilical hernia IMPRESSION: Negative for a genitourinary calculus
[2020-08-12 19:30] LABS: Absolute Lymphocytes (CBC) 3.3 K/uL (0.7-4.9); Basophils % 0.4 % (0-1.3); Hematocrit 36.7 % (36.0-45.0); Lymphocytes % 47.8 % (15.3-44.8); MPV 9.2 fL (7.6-11.3); RBC Red Blood Cell Count 4.62 M/uL (3.86-4.86)
[2020-08-12 19:38] LABS: ALT/SGPT 18 U/L (12-78); Alkaline Phosphatase 94 U/L (45-117); BUN Blood Urea Nitrogen 13 mg/dL (7-18); Bicarbonate 27 mmol/L (21-32); Bilirubin Total 0.3 mg/dL (0.2-1.0); Glucose Level 279 mg/dL (74-106); Lipase 144 U/L (73-393); Protein, Total 8.5 g/dL (6.4-8.2); Sodium Level 137 mmol/L (136-145)
[2020-08-12 19:42] LABS: AST/SGOT 23 U/L (15-37); Potassium 4.1 mmol/L (3.5-5.1)
--- NOTE | 2020-08-12 20:05 | ER ---
Nurse's Notes [facility] Name: Ping Brown Age: 29 yrs Sex: Female : 1990 Arrival Date: 08/12/2020 Time: 15:52 Bed 23 Private MD: Diagnosis: Low back pain Presentation: 08/12 15:58 Chief complaint: Patient states: Bilateral low back pain, worse on R for a couple ll1 years. Recently found out she was diabetic and has PCOS. States she just came to get everything checked out. Make sure its just her kidneys. Notices urinary frequency, no dysuria. Coronavirus screen: Client denies travel out of the [place] in the last 14 days. At this time, the client does not indicate any symptoms associated with coronavirus-19. Ebola Screen: Patient denies travel to an Ebola-affected area in the 21 days before illness onset. Initial Sepsis Screen: Does the patient meet any 2 criteria? No. Patient's initial sepsis screen is negative. Does the patient have a suspected source of infection? Yes: Dysuria/Frequency/Urgency/UTI. Risk Assessment: Do you want to hurt yourself or someone else? Patient reports no desire to harm self or others. Onset of symptoms was June 21, 2018. 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 - Social history:: Smoking status: Patient reports the use of cigarette tobacco products, smokes one-half pack cigarettes per day. Screenin:30 Abuse screen: Denies threats or abuse. Nutritional screening: No deficits noted. vg1 Tuberculosis screening: No symptoms or risk factors identified. Fall Risk None identified. Assessment: 18:28 General: Appears in no apparent distress. comfortable, Behavior is calm, cooperative. vg1 Pain: Complains of pain in right mid back and right low back Pain currently is 8 out of 10 on a pain scale. Neuro: Level of Consciousness is awake, alert, obeys commands, Oriented to person, place, time, situation. Cardiovascular: Patient's skin is warm and dry. Respiratory: Airway is patent Respiratory effort is even, unlabored. GI: Reports diarrhea, Patient currently denies nausea, vomiting. : Reports urinary frequency, vaginal itching. EENT: No signs and/or symptoms were reported regarding the EENT system. Derm: Skin is intact, is healthy with good turgor. Musculoskeletal: Circulation, motion, and sensation intact. Vital Signs: 15:58 BP 134 / 82; Pulse 73; Resp 16; Temp 97.8; Pulse Ox 97% ; Weight 83.46 kg; Height 5 ft. ll1 4 in. (162.56 cm); Pain 10/10; 18:30 BP 127 / 85; Pulse 73; Resp 16; Pulse Ox 98% on R/A; vg1 15:58 Body Mass Index 31.58 (83.46 kg, 162.56 cm) ll1 ED Course: 15:52 Patient arrived in ED. ds1 16:00 Triage completed. ll1 16:00 Urine collected: clean catch specimen, clear, nathaniel colored. jp3 16:01 Arm band placed on. ll1 18:10 Trevon Hart NP is PHCP. pm1 18:10 Adama Werner MD is Attending Physician. pm1 18:12 Beulah Felix, RN is Primary Nurse. vg1 18:30 Patient has correct armband on for positive identification. Bed in low position. Call vg1 light in reach. Side rails up X 1. 18:[address] via wheelchair. vg1 18:47 CT Stone Protocol In Process Unspecified. EDMS 19:16 Initial lab(s) drawn, by me, sent to lab. Inserted saline lock: 20 gauge in left vg1 antecubital area, using aseptic technique. Blood collected. 20:21 No provider procedures requiring assistance completed. IV discontinued, intact, vg1 bleeding controlled, No redness/swelling at site. Pressure dressing applied. Administered Medications: 19:15 Drug: NS 0.9% 1000 ml Route: IV; Rate: 1000 ml; Site: left antecubital; vg1 20:06 Follow up: IV Status: Completed infusion; IV Intake: 1000ml vg1 Point of Care Testing: Urine : 16:00 hCG Reading: Negative; Control Reading: Positive; jp3 Intake: 20:06 IV: 1000ml; Total: 1000ml. vg1 Outcome: 20:05 Discharge ordered by . pm1 20:21 Discharged to home ambulatory. vg1 20:21 Condition: stable 20:21 Discharge instructions given to patient, Instructed on discharge instructions, follow up and referral plans. medication usage, Demonstrated understanding of instructions, follow-up care, medications, Prescriptions given X 2. 20:21 Patient left the ED. vg1 Signatures: Dispatcher [employer] EDAR Pam Garza ds1 Trevon Hart NP [employer] pm1 Robert Diaz jp3 Beulah Felix, RN RN vg1 Sammi Payton, DOREEN RN ll1
--- NOTE | 2020-08-12 20:06 | EDPHYS ---
Physician Documentation [facility] Name: Ping Brown Age: 29 yrs Sex: Female : 1990 Arrival Date: 08/12/2020 Time: 15:52 Bed 23 Private MD: ED Physician Adama Werner HPI: 08/12 18:36 This 29 yrs old Black Female presents to ER via Ambulatory with complaints of R Side pm1 Pain. 18:36 The patient presents with pain . The symptoms are located in the right low back. The pm1 pain does not radiate. The problem was sustained from unknown cause, patient concerned it is her kidneys. Onset: The symptoms/episode began/occurred Pain on going for years but primarily on the right side now. Modifying factors: The patient symptoms are alleviated by nothing, the patient symptoms are aggravated by movement. Associated signs and symptoms: Pertinent positives: urinary frequency, Pertinent negatives: chest pain, fever, nausea, vomiting, weakness. The patient has not recently seen a physician. 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 - Social history:: Smoking status: Patient reports the use of cigarette tobacco products, smokes one-half pack cigarettes per day. ROS: 18:36 Constitutional: Negative for fever, chills, and weight loss, Cardiovascular: Negative pm1 for chest pain, palpitations, and edema, Respiratory: Negative for shortness of breath, cough, wheezing, and pleuritic chest pain, Abdomen/GI: Negative for abdominal pain, nausea, vomiting, diarrhea, and constipation. 18:36 MS/Extremity: Negative for injury and deformity, Skin: Negative for injury, rash, and discoloration, Neuro: Negative for headache, weakness, numbness, tingling, and seizure. 18:36 Back: Positive for pain with movement, flank pain, on the right. 18:36 : Positive for urinary frequency, Negative for hematuria, burning with urination. Exam: 18:36 Constitutional: This is a well developed, well nourished patient who is awake, alert, pm1 and in no acute distress. Head/Face: Normocephalic, atraumatic. 18:36 Skin: Warm, dry with normal turgor. Normal color with no rashes, no lesions, and no evidence of cellulitis. MS/ Extremity: Pulses equal, no cyanosis. Neurovascular intact. Full, normal range of motion. 18:36 Cardiovascular: Exam negative for acute changes, Rate: normal, Rhythm: regular, Pulses: no pulse deficits are appreciated. 18:36 Respiratory: Exam negative for acute changes, respiratory distress, shortness of breath. 18:36 Abdomen/GI: Inspection: abdomen appears normal, Palpation: abdomen is soft and non-tender, in all quadrants. 18:36 Back: pain, that is mild, of the right low back, normal spinal alignment noted. 18:36 Neuro: Exam negative for acute changes, Orientation: is normal, Mentation: is normal, Motor: is normal, moves all fours. Vital Signs: 15:58 BP 134 / 82; Pulse 73; Resp 16; Temp 97.8; Pulse Ox 97% ; Weight 83.46 kg; Height 5 ft. ll1 4 in. (162.56 cm); Pain 10/10; 18:30 BP 127 / 85; Pulse 73; Resp 16; Pulse Ox 98% on R/A; vg1 15:58 Body Mass Index 31.58 (83.46 kg, 162.56 cm) ll1 MDM: 18:16 Patient medically screened. pm1 20:04 Data reviewed: vital signs. Data interpreted: Pulse oximetry: on room air is 98 %. pm1 Interpretation: normal. Counseling: I had a detailed discussion with the patient and/or guardian regarding: the historical points, exam findings, and any diagnostic results supporting the discharge/admit diagnosis, lab results, radiology results, the need for outpatient follow up, a family practitioner, an OB/Gyne specialist, to return to the emergency department if symptoms worsen or persist or if there are any questions or concerns that arise at home. 08/12 16:15 Order name: Urine Dipstick--Ancillary (enter results); Complete Time: 18:16 bd 08/12 16:17 Order name: Urine --Ancillary (enter results) bd 08/12 16:18 Order name: Urine --Ancillary; Complete Time: 18:16 EDMS 08/12 18:27 Order name: Urine Microscopic Only pm1 08/12 18:27 Order name: CBC with Diff pm1 08/12 18:27 Order name: CMP pm1 08/12 18:27 Order name: CT Stone Protocol; Complete Time: 19:22 pm1 08/12 18:27 Order name: Lipase pm1 08/12 18:28 Order name: Urine Microscopic Only; Complete Time: 19:22 EDMS 08/12 18:28 Order name: CBC with Automated Diff EDMS 08/12 18:28 Order name: Comprehensive Metabolic Panel; Complete Time: 20:03 EDMS 08/12 18:28 Order name: Lipase; Complete Time: 20:03 EDMS 08/12 19:35 Order name: Manual Differential EDMS Administered Medications: 19:15 Drug: NS 0.9% 1000 ml Route: IV; Rate: 1000 ml; Site: left antecubital; vg1 20:06 Follow up: IV Status: Completed infusion; IV Intake: 1000ml vg1 Point of Care Testing: Urine : 16:00 hCG Reading: Negative; Control Reading: Positive; jp3 Disposition: 08/12/20 20:05 Discharged to Home. Impression: Low back pain. - Condition is Stable. - Discharge Instructions: Back Pain, Adult. - Prescriptions for Cyclobenzaprine 10 mg Oral Tablet - take 1 tablet by ORAL route every 8 hours As needed; 30 tablet. Diclofenac Sodium 75 mg Oral Tablet, Delayed Release (E.C.) - take 1 tablet by ORAL route 2 times per day As needed; 30 tablet. - Medication Reconciliation Form, Thank You Letter, Antibiotic Education, Prescription Opioid Use form. - Follow up: Emergency Department; When: As needed; Reason: Worsening of condition. Follow up: Private Physician; When: 2 - 3 days; Reason: Recheck today's complaints, Continuance of care, Re-evaluation by your physician. - Problem is new. - Symptoms have improved. Addendum: 08/14/2020 07:04 Co-signature as Attending Physician, Adama Werner MD. r n Signatures: Dispatcher [employer] Adama Noonan MD MD rn Marinas, Patrick, SALESPERSON [employer]ESPERSON [employer] pm1 Beulah Felix, RN RN vg1 Sammi Payton RN RN ll1 Corrections: (The following items were deleted from the chart) 08/12 20:21 20:05 08/12/2020 20:05 Discharged to Home. Impression: Low back pain. Condition is vg1 Stable. Forms are Medication Reconciliation Form, Thank You Letter, Antibiotic Education, Prescription Opioid Use. Follow up: Emergency Department; When: As needed; Reason: Worsening of condition. Follow up: Private Physician; When: 2 - 3 days; Reason: Recheck today's complaints, Continuance of care, Re-evaluation by your physician. Problem is new. Symptoms have improved. pm1 08/13 01:19 01:18 This 29 yrs old Black Female presents to ER via Ambulatory with complaints of R pm1 Side Pain. pm1
[2020-08-12 20:46] LABS: Blood Morphology Comment NOT SEEN (NOT SEEN); Platelet Estimate ADEQ
[2020-08-12 22:52] VITALS: TEMP 97.8
[2020-08-12 22:53] VITALS: BP 127/85; O2SAT 98
== END 2020-08-12 20:21 | disposition home or self-care (01) ==
LOC: ER 15:47
DX: M54.5 Low back pain (principal); E11.9 Type 2 diabetes mellitus without complications; F17.210 Nicotine dependence, cigarettes, uncomplicated
CPT/HCPCS: 36415; 74176; 76377; 80053; 81003; 81015; 81025; 83690; 85025; 96360; 99284; J7030

== ENCOUNTER 2023-10-19 01:00 | Emergency (ER) | payer SELFPAY ==
--- OUTSIDE RECORDS SUMMARY | 2023-10-19 01:05 | XMS REPORT | Continuity of Care Document ---
Author Name Unknown Address [address] [facility] [address] [place] [address] [facility] thconnect Address [address] [facility] [address] [place] [address] Care Team Providers Care Continuous Wave Operator Name Role Phone AMADOR ROJAS Primary Care Physician FREDI Rios Attending Clinician UnavailFREDI Santa Attending Clinician UnavailLEA Fernandes Attending Clinician Unavailab KENYATTA Mendoza Attending Clinician Unavail able NAZIA WILSON Attending Clinician Unavailmark Bae MSN, Lea Weeks Attending Clinician [phone] Doctor Unassigned, Godley Attending Clinician U reynaailVignesh Simpson Attending Clinician + VIGNESH KEITH Attending Clinician Unakalpana ilAmador Galdamez Attending Clinician + AMADOR ROJAS Attending Clinician Unavailable RAHUL RAYA Attending Clinician Unavailable RAHUL RAYA Attending Clinician Unavailable Cintia Fuller Attending Clinician +[phone] [facility] Attending Clinician Un available Rodrigo Ponce MD Attending Clinician [phone] RODRIGO PONCE Attending Clinician Unavailable CINTIA DENNIS Attending Clinician Unavailable Ultrasound, Payalm Attending Clinician UnavailNadir Lacy MD Attending Clinician [phone] NADIR COLBY Attending Clinician Unavailable NADIR COLBY Attending Clinician Unavailable RAMON MONTOYA Attending Clinician Unav ailable Bossman HERNANDEZ, Ramon Mariscal Attending Clinician + DORIAN BOWERS Attending Clinician UnavailNAZARIO Faye Attending Clinician Unavailab Nazario Mc Attending Clinician + [phone] Payers Payer Name Policy Type Policy Number Effective Date Expirati on Date Source [place] [facility] [id number] [facility] [id number] 2023 00:00:00 [place] [employer] [employer] [id number] 2022 00:00:00 [place] [id number] 2021 00:00:00 MEDICAID PENDING PENDING 2021 00:00:00 Problems Condition Name Condition Details Condition Category Status Onset Date Resolution Date Last Treatment Date Treating Clinician Comments Source 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 Repeat co-testin g - ASCUS with HPV negative. No DAYDAY noted on colposcop y bx. Needs repeat co-testin g in 12 months (09/2023) . [facility] Hx of syphilis Hx of syphilis Disease Active 07-22 00:00: 00 Overview: Formattin g of this note might be different from the original. Formattin g of this note might be different from the original. Patient reports she was [facility] last year at [facility] [place] nit[place] titer 1:256, then 1:128, now 1:4 (11/28) Redose single dose, possible reexposur e? 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 Formattin g of this note might be different from the original. Take insulinut mb off metformin hemaglobi n a1c 6.9 on 10/09/2021 36 tid 100 qhs30 tid 90 qhs25 tid 80 qhs [facility] acute hospital Syphilis Syphilis Disease Active 2019-06 00:00: 00 [facility] Low serum HDL Low serum HDL Disease Active 2019-06 00:00: 00 [facility] High triglyceri sheri High triglyceri sheri Disease Active 2019-06 00:00: 00 [facility] Type 2 diabetes mellitus without complicati on, without long-term current use of insulin Type 2 diabetes mellitus without complicati on, without long-term current use of insulin Disease Active 2019-06 00:00: 00 [facility] acute hospital Desire for Desire for Disease Active 2019-06 00:00: 00 [facility] acute [facility] Hirsutism Hirsutism Disease Active 2019-06 00:00: 00 [facility] Pre-diabet es Pre-diabet es Disease Active 09-28 00:00: 00 [facility] acute hospital Well woman exam Well woman exam Disease Active 10-09 00:00: 00 [facility] acute hospital BMI 37.0-37.9, adult BMI 37.0-37.9, adult Disease Active 10-09 00:00: 00 [facility] acute [facility] Depression , unspecifie d depression type Depression , unspecifie d depression type Disease Active 10-09 00:00: 00 Overview: Formattin g of this note might be different from the original. denies Suicidal Ideas or harmful Ideas - to self or family, Does not feel she needs meds at this time - local resources given 10/09/2016 [facility] acute hospital Irregular menstrual cycle Irregular menstrual cycle Disease Active 10-09 00:00: 00 Overview: Formattin g of this note might be different from the original. 10/09/2016 states her menses only comes twice a year, last 04/2016 [facility] acute hospital Anxiety and depression Anxiety and depression Disease Active 10-09 00:00: 00 Overview: Formattin g of this note might be different from the original. denies Suicidal Ideas or harmful Ideas - to self or family, Does not feel she needs meds at this time - local resources given 10/09/2016 Formattin g of this note might be different from the original. Medicatio n zoloft in the past [facility] acute [facility] Tobacco use disorder Tobacco use disorder Disease Active 12-06 00:00: 00 [facility] acute [facility] Allergies, Adverse Reactions, Alerts Allergy Name Allergy Type Status Severity Reaction(s) Onset Date Inactive Date Treating Clinician Comments Source NO KNOWN ALLERGIE S Drug Class Active [facility] acute [facility] Social History Social Habit Start Date Stop Date Quantity Comments Source ASSERTION 2021-04-05 00:00:00 [facility] Exposure to SARS-CoV-2 (event) 2022-10-19 00:00:00 2022-10-29 08:43:00 Not sure [facility] History of Social function 2022-08-20 00:00:00 2022-08-20 00:00:00 [facility] History of tobacco use 2008-04-06 00:00:00 2021-05-15 00:00:00 Cigarette Smoker [facility] Alcohol intake 2020-12-11 00:00:00 2020-12-11 00:00:00 Current non-drinker of alcohol (finding) [facility] Tobacco Comment 2020-04-30 00:00:00 2020-04-30 00:00:00 smokes 1 pack per day [facility] Cigarettes smoked current (pack per day) - Reported 2020-04-30 00:00:00 2020-04-30 00:00:00 [facility] Tobacco use and exposure 2020-04-30 00:00:00 2020-04-30 00:00:00 Smokeless tobacco non-user [facility] Sex Assigned At 1990 00:00:00 1990 00:00:00 [facility] Smoking Status Start Date Stop Date Source Ex-smoker 2021-06-03 00:00:00 2021-06-03 00[facility]00[facility]00 [facility] tobacco daily 2020-04-30 00:00:00 [facility] Medications Ordered Medication Name Filled Medication Name Start Date Stop Date Current Medication? Ordering Clinician Indication Dosage Frequency Signature (SIG) Comments Components Source metroNIDAZO LE 500 mg tablet 10-01 00:00: 00 10-09 04:59 :00 No [id number] 500mg Take 1 tablet by mouth in the morning and 1 tablet in the evening. Do all this for 7 days. [facility] acute [facility] fluconazole 150 mg tablet 10-01 00:00: 00 10-02 04:59 :00 No [id number] 150mg Take 1 tablet by mouth once now for 1 dose. [facility] acute hospital norelgestro min-ethinyl estradiol 150-35 mcg/24 hr patch 09-25 00:00: 00 Yes [id number] 1{patch } Apply 1 Patch to skin weekly. [facility] fluconazole 150 mg tablet 09-25 00:00: 00 09-26 04:59 :00 No [id number] 150mg Take 1 tablet by mouth once now for 1 dose. [facility] acute [facility] insulin NPH (HUMULIN N NPH U-100 INSULIN) 100 unit/mL injection 06-27 00:00: 00 Yes [id number] inject 26 Units under the skin daily before breakfast AND 14 Units at bedtime. [facility] insulin regular human 100 unit/mL injection 06-27 00:00: 00 Yes [id number] inject 12 Units under the skin daily before breakfast AND 8 Units before evening meal. [facility] Insulin Syringe-Nee dle U-100 0.3 mL 29 gauge Syrg 06-27 00:00: 00 Yes [id number] Use as directed [facility] acute [facility] lancets 28 gauge Misc 06-27 00:00: 00 Yes [id number] Use as directed [facility] Insulin Syringe-Nee dle U-100 0.3 mL 29 gauge Syrg 06-27 00:00: 00 Yes [id number] Use as directed [facility] acute hospital PNV 67-iron ps-folate no.1-dha (VITAFOL ULTRA) 29 mg iron- 1 mg-200 mg Cap 2020-06 00:00: 00 07-19 05:59 :00 No [id number] 1{tbl} Take 1 tablet by mouth daily for 30 days. [facility] acute [facility] COVID-19 test specimen collect Misc 2020-06 00:00: 00 06-27 00:00 :00 No TEST DIRECTED TODAY [facility] acute [facility] ID NOW COVID-19 TEST KIT Kit 03-07 00:00: 00 06-27 00:00 :00 No TEST DIRECTED [facility] metroNIDAZO LE 500 mg tablet 12-11 00:00: 00 12-19 04:59 :00 No [id number] 500mg Take 1 tablet by mouth 2 (two) times daily for 7 days. [facility] NOVOLIN N NPH U-100 INSULIN 100 unit/mL injection 06-27 00:00: 00 Yes INJECT 15 UNITS SUBCUTANEO USLY AT BEDTIME [facility] medroxyPROG ESTERone (PROVERA) 10 mg tablet 06-27 00:00: 00 06-27 00:00 :00 No [id number] 10mg Take 1 tablet by mouth daily. [facility] fenofibrate 48 mg tablet 06-27 00:00: 00 06-27 00:00 :00 No 48mg Take 48 mg by mouth daily. [facility] acute [facility] metFORMIN 500 mg tablet 06-26 00:00: 00 Yes 500mg Take 500 mg by mouth 2 (two) times daily. [facility] acute [facility] metFORMIN 500 mg tablet 06-26 00:00: 00 Yes 1000mg Take 1,000 mg by mouth 2 (two) times daily. [facility] Immunizations Ordered Immunization Name Filled Immunization Name Date Status Comments Source TDAP 2021-10-09 00:00:00 Completed [facility] TDAP 2021-10-09 00:00:00 Completed [facility] TDAP 2021-10-09 00:00:00 Completed [facility] TDAP 2021-10-09 00:00:00 Completed [facility] TDAP 2021-10-09 00:00:00 Completed [facility] TDAP 2021-10-09 00:00:00 Completed [facility] TDAP 2021-10-09 00:00:00 Completed [facility] TDAP 2021-10-09 00:00:00 Completed [facility] TDAP 2021-10-09 00:00:00 Completed [facility] TDAP 2021-10-09 00:00:00 Completed [facility] TDAP 2021-10-09 00:00:00 Completed [facility] TDAP 2021-10-09 00:00:00 Completed [facility] TDAP 2021-10-09 00:00:00 Completed [facility] TDAP 2021-10-09 00:00:00 Completed [facility] TDAP 2021-10-09 00:00:00 Completed [facility] TDAP 2021-10-09 00:00:00 Completed [facility] SARS-COV-2 COVID-19 PFIZER VACCINE 2021-07-17 00:00:00 Completed [facility] SARS-COV-2 COVID-19 PFIZER VACCINE 2021-07-17 00:00:00 Completed [facility] SARS-COV-2 COVID-19 PFIZER VACCINE 2021-07-17 00:00:00 Completed [facility] SARS-COV-2 COVID-19 PFIZER VACCINE 2021-07-17 00:00:00 Completed [facility] SARS-COV-2 COVID-19 PFIZER VACCINE 2021-07-17 00:00:00 Completed [facility] SARS-COV-2 COVID-19 PFIZER VACCINE 2021-07-17 00:00:00 Completed [facility] SARS-COV-2 COVID-19 PFIZER VACCINE 2021-07-17 00:00:00 Completed [facility] SARS-COV-2 COVID-19 PFIZER VACCINE 2021-07-17 00:00:00 Completed [facility] SARS-COV-2 COVID-19 PFIZER VACCINE 2021-07-17 00:00:00 Completed [facility] SARS-COV-2 COVID-19 PFIZER VACCINE 2021-07-17 00:00:00 Completed [facility] SARS-COV-2 COVID-19 PFIZER VACCINE 2021-07-17 00:00:00 Completed [facility] SARS-COV-2 COVID-19 PFIZER VACCINE 2021-07-17 00:00:00 Completed [facility] SARS-COV-2 COVID-19 PFIZER VACCINE 2021-07-17 00:00:00 Completed [facility] SARS-COV-2 COVID-19 PFIZER VACCINE 2021-07-17 00:00:00 Completed [facility] SARS-COV-2 COVID-19 PFIZER VACCINE 2021-07-17 00:00:00 Completed [facility] SARS-COV-2 COVID-19 PFIZER VACCINE 2021-07-17 00:00:00 Completed [facility] SARS-COV-2 COVID-19 PFIZER VACCINE 2021-02-16 00:00:00 Completed [facility] SARS-COV-2 COVID-19 PFIZER VACCINE 2021-02-16 00:00:00 Completed [facility] SARS-COV-2 COVID-19 PFIZER VACCINE 2021-02-16 00:00:00 Completed [facility] SARS-COV-2 COVID-19 PFIZER VACCINE 2021-02-16 00:00:00 Completed [facility] SARS-COV-2 COVID-19 PFIZER VACCINE 2021-02-16 00:00:00 Completed [facility] SARS-COV-2 COVID-19 PFIZER VACCINE 2021-02-16 00:00:00 Completed [facility] SARS-COV-2 COVID-19 PFIZER VACCINE 2021-02-16 00:00:00 Completed [facility] SARS-COV-2 COVID-19 PFIZER VACCINE 2021-02-16 00:00:00 Completed [facility] SARS-COV-2 COVID-19 PFIZER VACCINE 2021-02-16 00:00:00 Completed [facility] SARS-COV-2 COVID-19 PFIZER VACCINE 2021-02-16 00:00:00 Completed [facility] SARS-COV-2 COVID-19 PFIZER VACCINE 2021-02-16 00:00:00 Completed [facility] SARS-COV-2 COVID-19 PFIZER VACCINE 2021-02-16 00:00:00 Completed [facility] SARS-COV-2 COVID-19 PFIZER VACCINE 2021-02-16 00:00:00 Completed [facility] SARS-COV-2 COVID-19 PFIZER VACCINE 2021-02-16 00:00:00 Completed [facility] SARS-COV-2 COVID-19 PFIZER VACCINE 2021-02-16 00:00:00 Completed [facility] SARS-COV-2 COVID-19 PFIZER VACCINE 2021-02-16 00:00:00 Completed [facility] SARS-COV-2 COVID-19 PFIZER VACCINE 2021-01-26 00:00:00 Completed [facility] SARS-COV-2 COVID-19 PFIZER VACCINE 2021-01-26 00:00:00 Completed [facility] SARS-COV-2 COVID-19 PFIZER VACCINE 2021-01-26 00:00:00 Completed [facility] SARS-COV-2 COVID-19 PFIZER VACCINE 2021-01-26 00:00:00 Completed [facility] SARS-COV-2 COVID-19 PFIZER VACCINE 2021-01-26 00:00:00 Completed [facility] SARS-COV-2 COVID-19 PFIZER VACCINE 2021-01-26 00:00:00 Completed [facility] SARS-COV-2 COVID-19 PFIZER VACCINE 2021-01-26 00:00:00 Completed [facility] SARS-COV-2 COVID-19 PFIZER VACCINE 2021-01-26 00:00:00 Completed [facility] SARS-COV-2 COVID-19 PFIZER VACCINE 2021-01-26 00:00:00 Completed [facility] SARS-COV-2 COVID-19 PFIZER VACCINE 2021-01-26 00:00:00 Completed [facility] SARS-COV-2 COVID-19 PFIZER VACCINE 2021-01-26 00:00:00 Completed [facility] SARS-COV-2 COVID-19 PFIZER VACCINE 2021-01-26 00:00:00 Completed [facility] SARS-COV-2 COVID-19 PFIZER VACCINE 2021-01-26 00:00:00 Completed [facility] SARS-COV-2 COVID-19 PFIZER VACCINE 2021-01-26 00:00:00 Completed [facility] SARS-COV-2 COVID-19 PFIZER VACCINE 2021-01-26 00:00:00 Completed [facility] SARS-COV-2 COVID-19 PFIZER VACCINE 2021-01-26 00:00:00 Completed [facility] Influenza Virus Vaccine Quad .5 mL IM 6+ MO 2020-04-30 00:00:00 Completed [facility] Influenza Virus Vaccine Quad .5 mL IM 6+ MO 2020-04-30 00:00:00 Completed [facility] Influenza Virus Vaccine Quad .5 mL IM 6+ MO 2020-04-30 00:00:00 Completed [facility] Influenza Virus Vaccine Quad .5 mL IM 6+ MO 2020-04-30 00:00:00 Completed [facility] Influenza Virus Vaccine Quad .5 mL IM 6+ MO 2020-04-30 00:00:00 Completed [facility] Influenza Virus Vaccine Quad .5 mL IM 6+ MO 2020-04-30 00:00:00 Completed [facility] Influenza Virus Vaccine Quad .5 mL IM 6+ MO 2020-04-30 00:00:00 Completed [facility] Influenza Virus Vaccine Quad .5 mL IM 6+ MO 2020-04-30 00:00:00 Completed [facility] Influenza Virus Vaccine Quad .5 mL IM 6+ MO 2020-04-30 00:00:00 Completed [facility] Influenza Virus Vaccine Quad .5 mL IM 6+ MO 2020-04-30 00:00:00 Completed [facility] Influenza Virus Vaccine Quad .5 mL IM 6+ MO 2020-04-30 00:00:00 Completed [facility] Influenza Virus Vaccine Quad .5 mL IM 6+ MO 2020-04-30 00:00:00 Completed [facility] Influenza Virus Vaccine Quad .5 mL IM 6+ MO 2020-04-30 00:00:00 Completed [facility] Influenza Virus Vaccine Quad .5 mL IM 6+ MO 2020-04-30 00:00:00 Completed [facility] Influenza Virus Vaccine Quad .5 mL IM 6+ MO 2020-04-30 00:00:00 Completed [facility] Influenza Virus Vaccine Quad .5 mL IM 6+ MO 2020-04-30 00:00:00 Completed [facility] Influenza Virus Vaccine Quad .5 mL IM 6+ MO 2020-04-30 00:00:00 Completed [facility] Influenza Virus Vaccine Quad .5 mL IM 6+ MO 2020-04-30 00:00:00 Completed [facility] Influenza Virus Vaccine Quad .5 mL IM 6+ MO 2020-04-30 00:00:00 Completed [facility] Influenza Virus Vaccine Quad .5 mL IM 6+ MO 2020-04-30 00:00:00 Completed [facility] Influenza Virus Vaccine Quad .5 mL IM 6+ MO 2020-04-30 00:00:00 Completed [facility] Influenza Virus Vaccine Quad .5 mL IM 6+ MO 2020-04-30 00:00:00 Completed [facility] Influenza Virus Vaccine Quad .5 mL IM 6+ MO 2020-04-30 00:00:00 Completed [facility] Influenza Virus Vaccine Quad .5 mL IM 6+ MO 2020-04-30 00:00:00 Completed [facility] Influenza Virus Vaccine Quad .5 mL IM 6+ MO 2020-04-30 00:00:00 Completed [facility] TDAP (ADACEL) VACCINE 2016-10-09 00:00:00 Completed [facility] TDAP (ADACEL) VACCINE 2016-10-09 00:00:00 Completed [facility] TDAP (ADACEL) VACCINE 2016-10-09 00:00:00 Completed [facility] TDAP (ADACEL) VACCINE 2016-10-09 00:00:00 Completed [facility] TDAP (ADACEL) VACCINE 2016-10-09 00:00:00 Completed [facility] TDAP (ADACEL) VACCINE 2016-10-09 00:00:00 Completed [facility] TDAP (ADACEL) VACCINE 2016-10-09 00:00:00 Completed [facility] TDAP (ADACEL) VACCINE 2016-10-09 00:00:00 Completed [facility] TDAP (ADACEL) VACCINE 2016-10-09 00:00:00 Completed [facility] TDAP (ADACEL) VACCINE 2016-10-09 00:00:00 Completed [facility] TDAP (ADACEL) VACCINE 2016-10-09 00:00:00 Completed [facility] TDAP (ADACEL) VACCINE 2016-10-09 00:00:00 Completed [facility] TDAP (ADACEL) VACCINE 2016-10-09 00:00:00 Completed [facility] TDAP (ADACEL) VACCINE 2016-10-09 00:00:00 Completed [facility] TDAP (ADACEL) VACCINE 2016-10-09 00:00:00 Completed [facility] TDAP (ADACEL) VACCINE 2016-10-09 00:00:00 Completed [facility] TDAP (ADACEL) VACCINE 2016-10-09 00:00:00 Completed [facility] TDAP (ADACEL) VACCINE 2016-10-09 00:00:00 Completed [facility] TDAP (ADACEL) VACCINE 2016-10-09 00:00:00 Completed [facility] TDAP (ADACEL) VACCINE 2016-10-09 00:00:00 Completed [facility] TDAP (ADACEL) VACCINE 2016-10-09 00:00:00 Completed [facility] TDAP (ADACEL) VACCINE 2016-10-09 00:00:00 Completed [facility] TDAP (ADACEL) VACCINE 2016-10-09 00:00:00 Completed [facility] TDAP (ADACEL) VACCINE 2016-10-09 00:00:00 Completed [facility] TDAP (ADACEL) VACCINE 2016-10-09 00:00:00 Completed [facility] Td 2004-06-21 00:00:00 Completed [facility] Td 2004-06-21 00:00:00 Completed [facility] Td 2004-06-21 00:00:00 Completed [facility] Td 2004-06-21 00:00:00 Completed [facility] Td 2004-06-21 00:00:00 Completed [facility] Td 2004-06-21 00:00:00 Completed [facility] Td 2004-06-21 00:00:00 Completed [facility] Td 2004-06-21 00:00:00 Completed [facility] TD, NOS 2004-06-21 00:00:00 Completed [facility] TD, NOS 2004-06-21 00:00:00 Completed [facility] TD, NOS 2004-06-21 00:00:00 Completed [facility] TD, NOS 2004-06-21 00:00:00 Completed [facility] TD, NOS 2004-06-21 00:00:00 Completed [facility] TD, NOS 2004-06-21 00:00:00 Completed [facility] TD, NOS 2004-06-21 00:00:00 Completed [facility] TD, NOS 2004-06-21 00:00:00 Completed [facility] TD, NOS 2004-06-21 00:00:00 Completed [facility] TD, NOS 2004-06-21 00:00:00 Completed [facility] TD, NOS 2004-06-21 00:00:00 Completed [facility] TD, NOS 2004-06-21 00:00:00 Completed [facility] TD, NOS 2004-06-21 00:00:00 Completed [facility] TD, NOS 2004-06-21 00:00:00 Completed [facility] TD, NOS 2004-06-21 00:00:00 Completed [facility] TD, NOS 2004-06-21 00:00:00 Completed [facility] TD, NOS 2004-06-21 00:00:00 Completed [facility] TD, NOS Unknown Completed [facility] TDAP (ADACEL) VACCINE Unknown Completed [facility] Influenza Virus Vaccine Quad .5 mL IM 6+ MO (FLUZONE/FLULAVAL/F LUARIX) Unknown Completed [facility] SARS-COV-2 COVID-19 PFIZER VACCINE Unknown Completed [facility] SARS-COV-2 COVID-19 PFIZER VACCINE Unknown Completed [facility] TD, NOS Unknown Completed [facility] TDAP (ADACEL) VACCINE Unknown Completed [facility] Influenza Virus Vaccine Quad .5 mL IM 6+ MO (FLUZONE/FLULAVAL/F LUARIX) Unknown Completed [facility] SARS-COV-2 COVID-19 PFIZER VACCINE Unknown Completed [facility] SARS-COV-2 COVID-19 PFIZER VACCINE Unknown Completed [facility] TD, NOS Unknown Completed [facility] TDAP (ADACEL) VACCINE Unknown Completed [facility] Influenza Virus Vaccine Quad .5 mL IM 6+ MO (FLUZONE/FLULAVAL/F LUARIX) Unknown Completed [facility] Vital Signs Vital Name Observation Time Observation Value Comments S ource Systolic blood pressure 2022-10-29 13:43:00 126 mm[Hg] [facility] Diastolic blood pressure 2022-10-29 13:43:00 76 mm[Hg] [facility] Heart rate 2022-10-29 13:43:00 60 /min Unive [facility] Body temperature 2022-10-29 13:43:00 36.17 Karli [facility] Respiratory rate 2022-10-29 13:43:00 17 /min [facility] Body height 2022-10-29 13:43:00 160 cm [facility] Body weight 2022-10-29 13:43:00 78.614 kg [facility] BMI 2022-10-29 13:43:00 30.70 kg/m2 [facility] Systolic blood pressure 2022-09-25 14:18:00 125 mm[Hg] [facility] Diastolic blood pressure 2022-09-25 14:18:00 79 mm[Hg] [facility] Heart rate 2022-09-25 14:18:00 70 /min Unive [facility] Body temperature 2022-09-25 14:18:00 36.11 Karli [facility] Respiratory rate 2022-09-25 14:18:00 20 /min [facility] Body height 2022-09-25 14:18:00 160 cm [facility] Body weight 2022-09-25 14:18:00 78.926 kg [facility] BMI 2022-09-25 14:18:00 30.82 kg/m2 [facility] Systolic blood pressure 2021-06-18 19:48:00 125 mm[Hg] [facility] Diastolic blood pressure 2021-06-18 19:48:00 71 mm[Hg] [facility] Heart rate 2021-06-18 19:48:00 76 /min Unive [facility] Body temperature 2021-06-18 19:48:00 36.28 Karli [facility] Respiratory rate 2021-06-18 19:48:00 20 /min [facility] Body height 2021-06-18 19:48:00 160 cm [facility] Body weight 2021-06-18 19:48:00 93.441 kg [facility] BMI 2021-06-18 19:48:00 36.49 kg/m2 [facility] Systolic blood pressure 2021-06-03 14:39:00 125 mm[Hg] [facility] Diastolic blood pressure 2021-06-03 14:39:00 71 mm[Hg] [facility] Heart rate 2021-06-03 14:39:00 85 /min Unive [facility] Body temperature 2021-06-03 14:39:00 36.22 Karli [facility] Respiratory rate 2021-06-03 14:39:00 20 /min [facility] Body height 2021-06-03 14:39:00 160 cm [facility] Body weight 2021-06-03 14:39:00 92.534 kg [facility] BMI 2021-06-03 14:39:00 36.14 kg/m2 [facility] Procedures Procedure Date / Time Performed Performing Clinician Source POCT TEST 2022-10-29 13:48:00 Mich Bae [facility] DISCLOSURE AND CONSENT, MEDICAL AND SURGICAL PROCEDURES 2022-10-29 05:01:00 Doctor Unassigned, Godley [facility] GALV ONLY - VAGINAL PATHOGENS BY NUCLEIC ACID TESTING 2022-09-25 15:59:00 Vignesh Keith [facility] CBC WITH DIFF 2022-09-25 15:12:00 Anh-Cyru s, [facility] GLYCOSYLATED HEMOGLOBIN (A1C) 2022-09-25 [facility] 2022-09-25 15:12:00 Dinoar us [facility] GC & CHLAMYDIA AMPLIFIED ASSAY 2022-09-25 15:12:00 Inna [facility] RPR (QUANTITATIVE) 2022-09-25 15:12:00 Caridad pringle [facility] HIV 1/2 AG-AB WITH REFLEX 2022-09-25 15:12:00 Inna [facility] HIGH RISK HPV-THIN PREP 2022-09-25 15:12:00 Ceferino Wolff [facility] TRICHOMONAS AMPLIFIED ASSAY 2022-09-25 15:12:00 Inna [facility] PAP SMEAR-LIQUID BASED-CP 2022-09-25 15:12:00 Inna [facility] POCT TEST 2022-09-25 15:02:00 Evelio Nicole [facility] ASSIGNMENT OF BENEFITS 2022-08-20 18:30:58 Docto r Unassigned, Godley [facility] AUTHORIZATION FOR RELEASE OF PHI 2021-07-24 06:01:00 Doctor Unassigned, Godley [facility] POCT URINALYSIS 2021-06-18 19:51:00 Cintia Dennis [facility] POCT URINALYSIS W/O SPECIFIC GRAVITY 2021-06-03 14:43:00 Cintia Dennis [facility] Encounters Start Date/Time End Date/Time Encounter Type Admission Type Attending Clinicians Care Facility Care Department Encounter ID Source 2021-08-15 20:38:42 Outpatient [facility] [id number] [facility] 2021-08-07 13:28:03 Outpatient [facility] [id number] [facility] 2021-06-26 14:08:11 Outpatient [facility] [id number] Ajay [facility] 2023-09-21 15:30:00 2023-09-21 15:30:00 Outpatient R FREDI HART MARYANN [facility] [id number] General acute hospital 2023-07-28 14:45:00 2023-07-28 14:45:00 Outpatient R KENYATTA GOLDSTEIN [facility] [id number] General acute hospital 2023-04-28 13:30:00 2023-04-28 13:30:00 Outpatient R NAZIA WILSON [facility] [id number] General acute hospital 2023-04-06 13:30:00 2023-04-06 13:30:00 Outpatient R NAZIA WILSON [facility] [id number] General acute hospital 2022-11-26 14:30:00 2022-11-26 14:30:00 Outpatient LEA DIALLO [facility] [id number] General acute hospital 2022-11-20 00:00:00 2022-11-20 00:00:00 Telephone Lea Bae [facility] MATERNAL & CHILD [facility] .2.840.114 350.1.13.10 4.2.7.2.686 [id number] General acute hospital 2022-10-29 09:00:00 2022-10-29 09:18:50 Outpatient R LEA BAE [facility] [id number] General acute hospital 2022-10-29 09:00:00 2022-10-29 09:18:50 Office Visit Lea Bae [facility] MATERNAL & CHILD [facility] ..840.114 350.1.13.10 4.2.7.2.686 [id number] General acute hospital 2022-10-29 00:00:00 2022-10-29 00:00:00 Orders Only Doctor Unassigned, Godley [facility] 1.2840.114 350.1.13.10 4.2.7.2.686 [id number] General acute hospital 2022-10-16 00:00:00 2022-10-16 00:00:00 Telephone Dinora lao [facility] 1.2.840.114 350.1.13.10 4.2.7.2.686 [id number] General acute hospital 2022-10-01 00:00:00 2022-10-01 00:00:00 Abstract Dinora Freeman [facility] 1.840.114 350.1.13.10 4.2.7.2.686 [id number] General acute hospital 2022-09-30 00:00:00 2022-09-30 00:00:00 Patient Secure Msg Doctor Unassigned, Godley [facility] 1.0.114 350.1.13.10 4.2.7.2.686 [id number] General acute hospital 2022-09-25 09:15:00 2022-09-25 10:14:36 Outpatient R DINORA [facility] [id number] General acute hospital 2022-09-25 09:15:00 2022-09-25 10:14:36 Office Visit Dinora lao [facility] 1.2840.114 350.1.13.10 4.2.7.2.686 [id number] General acute hospital 2022-08-20 13:00:00 2022-08-20 13:15:00 Office Visit Amador Rojas [facility] & CHILD [facility] 1.2840.114 350.1.13.10 4.2.7.2.686 [id number] General acute hospital 2022-08-20 13:00:00 2022-08-20 13:00:00 Outpatient RYLEE JONASSIE [facility] [id number] General acute hospital 2022-08-20 00:00:00 2022-08-20 00:00:00 Orders Only Doctor Unassigned, Godley [facility] 1..114 350.1.13.10 4.2.7.2.686 [id number] General acute hospital 2022-08-06 14:02:30 2022-08-06 14:02:30 Outpatient HAIR ARNDT [id number] Renny More 2022-06-22 08:30:00 2022-06-22 08:30:00 Outpatient RAHUL LOZANO FELECIA [facility] [id number] General acute hospital 2022-05-11 13:00:00 2022-05-11 13:00:00 Outpatient RYLEE JONASSIE [facility] [id number] General acute hospital 2021-07-24 00:00:00 2021-07-24 00:00:00 Orders Only Doctor Unassigned, Godley [facility] .114 350.1.13.10 4.2.7.2.686 [id number] General acute hospital 2021-07-05 00:00:00 2021-07-05 00:00:00 Abstract Cintia Dennis [facility] MATERNAL & CHILD [facility] 1.114 350.1.13.10 4.2.7.2.686 [id number] General acute hospital 2021-07-04 11:30:00 2021-07-04 12:00:00 Telemedici ne Visit Fellow, Gal [facility] Rodrigo Ponce [facility] 1.114 350.1.13.10 4.2.7.2.686 [id number] General acute hospital 2021-07-04 11:30:00 2021-07-04 11:30:00 Outpatient RODRIGO FROST [facility] [id number] General acute hospital 2021-07-03 15:45:00 2021-07-03 15:45:00 Outpatient CINTIA DUKE [facility] [id number] General acute hospital 2021-07-02 14:30:00 2021-07-02 15:03:54 Asset Coordinator Visit Ultrasound, Nadir Carney [facility] MATERNAL & CHILD [facility] 840.114 350.1.13.10 4.2.7.2.686 [id number] General acute hospital 2021-07-02 14:30:00 2021-07-02 14:30:00 Outpatient NADIR ASHLEY SHANNON [facility] [id number] General acute hospital 2021-06-27 11:30:00 2021-06-27 11:30:49 Outpatient RAMON RUVALCABA [facility] [id number] General acute hospital 2021-06-27 11:30:00 2021-06-27 11:30:49 Telemedici ne Visit Fellow, Taz [facility] Ramon Patrick [facility] ..114 350.1.13.10 4.2.7.2.686 [id number] General acute hospital 2021-06-27 00:00:00 2021-06-27 00:00:00 Cintia Randle [facility] MATERNAL & CHILD [facility] .840.114 350.1.13.10 4.2.7.2.686 [id number] General acute hospital 2021-06-27 00:00:00 2021-06-27 00:00:00 Patient Secure Msg Doctor Unassigned, Godley [facility] 1.840.114 350.1.13.10 4.2.7.2.686 [id number] General acute hospital 2021-06-18 13:30:00 2021-06-18 14:25:22 Outpatient R CINTIA DENNIS [facility] [id number] General acute hospital 2021-06-18 13:30:00 2021-06-18 14:25:22 Routine Visit Cintia Dennis [facility] & CHILD [facility] 1..840.114 350.1.13.10 4.2.7.2.686 [id number] General acute hospital 2021-06-09 00:00:00 2021-06-09 00:00:00 Patient Secure Msg Cintia Dennis [facility] & CHILD [facility] 1.840.114 350.1.13.10 4.2.7.2.686 [id number] General acute hospital 2021-06-03 08:30:00 2021-06-03 10:08:46 Outpatient R CINTIA DENNIS [facility] [id number] General acute hospital 2021-06-03 08:30:00 2021-06-03 10:08:46 Outpatient R CINTIA DENNIS [facility] [id number] General acute hospital 2021-06-03 08:25:14 2021-06-03 10:08:46 Initial Visit Cintia Dennis [facility] CHILD [facility] 1..840.114 350.1.13.10 4.2.7.2.686 [id number] General acute hospital 2021-06-03 08:00:00 2021-06-03 08:00:00 Outpatient R CINTIA DENNIS [facility] [id number] General acute hospital 2021-06-03 00:00:00 2021-06-03 00:00:00 Orders Only Doctor Unassigned, Godley [facility] 1.2.840.114 350.1.13.10 4.2.7.2.686 [id number] General acute hospital 2021-05-01 08:30:00 2021-05-01 08:30:00 Outpatient DORIAN AMEZQUITA [facility] [id number] General acute hospital 2021-01-28 10:15:00 2021-01-28 10:15:00 Outpatient ICNTIA DUKE [facility] [id number] General acute hospital 2020-12-12 00:00:00 2020-12-12 00:00:00 Patient Secure Msg Cintia Dennis [facility] MATERNAL & CHILD [facility] 1.2.840.114 350.1.13.10 4.2.7.2.686 [id number] General acute hospital 2020-12-11 12:45:00 2020-12-11 12:45:00 Outpatient R CINTIA DENNIS [facility] [id number] General acute hospital 2020-11-20 08:00:00 2020-11-20 08:00:00 Outpatient R [facility] [id number] General acute hospital 2020-09-20 09:00:00 2020-09-20 09:00:00 Outpatient R KENYATTA GOLDSTEIN [facility] [id number] General acute hospital 2020-09-20 09:00:00 2020-09-20 09:00:00 Outpatient R KENYATTA GOLDSTEIN [facility] [id number] General acute hospital 2020-09-06 10:30:00 2020-09-06 10:30:00 Outpatient R KENYATTA GOLDSTEIN [facility] [id number] General acute hospital 2020-09-06 10:30:00 2020-09-06 10:30:00 Outpatient R KENYATTA GOLDSTEIN [facility] [id number] General acute hospital 2020-08-29 10:30:00 2020-08-29 10:30:00 Outpatient R KENYATTA GOLDSTEIN [facility] [id number] General acute hospital 2020-08-29 10:30:00 2020-08-29 10:30:00 Outpatient R SHAMIRCHARLYKENYATTA [facility] [id number] General acute hospital 2020-08-22 15:15:00 2020-08-22 15:15:00 Outpatient R SHAMIRCHARLYKENYATTA [facility] [id number] General acute hospital 2020-07-18 09:15:00 2020-07-18 09:15:00 Outpatient NAZARIO LASSITER [facility] [id number] General acute hospital 2020-07-18 09:15:00 2020-07-18 09:15:00 Outpatient R NAZARIO SARMIENTO [facility] [id number] General acute hospital 2020-07-11 15:30:00 2020-07-11 15:30:00 Outpatient R NAZARIO SARMIENTO [facility] [id number] General acute hospital 2020-06-27 13:57:31 2020-06-27 14:30:26 Office Visit Nazario Sarmiento [facility] MATERNAL & CHILD [facility] 1.2.840.114 350.1.13.10 4.2.7.2.686 [id number] 2020-06-27 14:00:00 2020-06-27 14:00:00 Outpatient R NAZARIO SARMIENTO [facility] [id number] General acute hospital 2020-05-22 16:00:00 2020-05-22 16:00:00 Outpatient R TRISTONKENYATTA [facility] [id number] General acute hospital 2020-05-22 16:00:00 2020-05-22 16:00:00 Outpatient R KENYATTA GOLDSTEIN [facility] [id number] General acute hospital 2020-05-10 13:30:00 2020-05-10 13:30:00 Outpatient R [facility] [id number] General acute hospital 2020-05-03 16:00:00 2020-05-03 16:00:00 Outpatient R KENYATTA GOLDSTEIN [facility] [id number] General acute hospital 2020-04-30 07:45:00 2020-04-30 07:45:00 Outpatient R DORIAN BOWERS [facility] [id number] General acute hospital Results Test Description Test Time Test Comments Results Result Co mments Source [facility] [id number] 13:49:00* Test Item Value Reference Range Interpretation Comme nts POCT PREG (test code = 1605) Negative On board controls acceptable with C Line (test code = 3574) Yes POCT PREG LOT # (test code = 3575) POCT PREG TEST DATE ( test code = 3576[id number] 13:49:00* Test Item Value Reference Range Interpretation Comme nts POCT PREG (test code = 1605) Negative On board controls acceptable with C Line (test code = 3574) Yes POCT PREG LOT # (test code = 3575) POCT PREG TEST DATE ( test code = 3576) [facility] [id number] 13:49:00* Test Item Value Reference Range Interpretation Comme nts POCT PREG (test code = 1605) Negative On board controls acceptable with C Line (test code = 3574) Yes POCT PREG LOT # (test code = 3575) POCT PREG TEST DATE ( test code = 3576) [facility] [id number] 15:02:00* Test Item Value Reference Range Interpretation Comme nts POCT PREG (test code = 1605) Negative On board controls acceptable with C Line (test code = 3574) Yes POCT PREG LOT # (test code = 3575) POCT PREG TEST DATE ( test code = 3576) [facility] [id number] 15:02:00* Test Item Value Reference Range Interpretation Comme nts POCT PREG (test code = 1605) Negative On board controls acceptable with C Line (test code = 3574) Yes POCT PREG LOT # (test code = 3575) POCT PREG TEST DATE ( test code = 3576) [facility] [id number] 15:02:00* Test Item Value Reference Range Interpretation Comme nts POCT PREG (test code = 1605) Negative On board controls acceptable with C Line (test code = 3574) Yes POCT PREG LOT # (test code = 3575) POCT PREG TEST DATE ( test code = 3576) [facility] [id number] 15:02:00* Test Item Value Reference Range Interpretation Comme nts POCT PREG (test code = 1605) Negative On board controls acceptable with C Line (test code = 3574) Yes POCT PREG LOT # (test code = 3575) POCT PREG TEST DATE ( test code = 3576) [facility] [id number] 15:02:00* Test Item Value Reference Range Interpretation Comme nts POCT PREG (test code = 1605) Negative On board controls acceptable with C Line (test code = 3574) Yes POCT PREG LOT # (test code = 3575) POCT PREG TEST DATE ( test code = 3576) [facility] [id number] 15:31:16* Test Item Value Reference Range Interpretation Comme [facility] HEMOGLOBIN A1c (test code = 24394) 13.3 % 4.2-5.6 [facility] [employer] [employer] GUIDELINES FOR HGB A1C: PREDIABETES/INCREASED RISK . . . . . . . 5.7-6.4% DIAGNOSIS OF DIABETES . . . . . . . . . >=6.5% WITH CONFIRMATION OR APPROPRIATE SYMPTOMS NOTE: ASSAY MAY BE AFFECTED BY HEMOGLOBINOPATHIES (SICKLE CELL ANEMIA, S-C DISEASE, OTHERS) OR ARTIFICIALLY LOWERED BY DECREASED RED CELL SURVIVAL (HEMOLYTIC ANEMIAS, BLOOD LOSS, ETC.). CONSIDER ALTERNATE TESTING OR LABORATORY CONSULTATION. COMPREHENSIVE METABOLIC [id number] 06:09:01* Test Item Value Reference Range Interpretation Comme nts GLUCOSE (test code = 2217) 357 MG/DL 70-99 H BUN (test code = 2207) 5 MG/DL 6-20 L CREATININE (test code = 2213) 0.55 MG/DL 0.60-1.30 L eGFR (2020 CKD-EPI) (test code = ) 126 ML/MIN/1.73 >60 CALC BUN/CREAT (test code = 2234) 9 RATIO 6-28 SODIUM (test code = 2230) 137 MEQ/L 133-146 POTASSIUM (test code = 2227) 4.0 MEQ/L 3.5-5.4 CHLORIDE (test code = 2214) 98 MEQ/L 95-107 CARBON DIOXIDE (test code = 2205) 22 MEQ/L 19-31 CALCIUM (test code = 2208) 9.5 MG/DL 8.5-10.5 PROTEIN, TOTAL (test code = 2228) 7.9 G/DL 6.1-8.3 ALBUMIN (test code = 2200) 4.9 G/DL 3.5-5.2 CALC GLOBULIN (test code = 2239) 3.0 G/DL 1.9-3.7 CALC A/G RATIO (test code = 2233) 1.6 RATIO 1.0-2.6 BILIRUBIN, TOTAL (test code = 2206) 0.4 MG/DL See_Comment [Automated me ssage] The system which generated this result transmitted reference range: <=1.2. The reference range was not used to interpret this result as normal/abnormal. ALKALINE PHOSPHATASE (test code = 2203) 84 U/L 40-114 AST (test code = 2217) 14 U/L 9-40 ALT (test code = 2218) 6 U/L 5-40 LIPID [id number] 06:09:01* Test Item Value Reference Range Interpretation Comme nts CHOLESTEROL (test code = 2209) 155 MG/DL <200 TRIGLYCERIDES (test code = 2232) 172 MG/DL <150 H HDL CHOLESTEROL (test code = 2219) 53 MG/DL >39 CALC LDL CHOL (test code = 2236) 75 MG/DL <100 NOTE: CALCULATED LDL IS BASED ON BROOKE-HAQ METHOD WHICHINCLUDES ADJUSTABLE TRIGLYCERIDE:VLDL CHOLESTEROL RATIO.THIS FACTOR VARIES BY MEASURED TRIGLYCERIDE AND NON-HDLCHOLESTEROL CONCENTRATIONS WITH INCREASED CALCULATED LDL SEENIN HIGHER TRIGLYCERIDE OR LOWER NON-HDL SPECIMENS. FOR MOREINFORMATION, SEE CLIENT ANNOUNCEMENT AT [email or web address] [email or web address] RATIO LDL/HDL (test code = 2238) 1.42 RATIO <3.22 [facility] has i mportant pathology staff changes effective 08/19/2022. New pathology staff will provide uninterrupted, excellent patient care and clinical consultation. See URL: [email or web address]. UNLESS OTHERWISE INDICATED, ALL TESTING PERFORMED AT [facility] [address] [place] [address] CLIA: [id number], CAP: [id number] POCT URINALYSIS W SPECIFIC [id number] 19:51:00* Test Item Value Reference Range Interpretation Comme nts POCT U SP GRAV (test code = 3255) na 1.005-1.025 POCT PH U (test code = 3254) 7 mg/dl 5-8 POCT U LEUK EST (test code = 3263) neg Negative - Negative POCT U NIT (test code = 3262) neg Negative - Negati ve POCT U PROT (test code = 3259) trace Negative - Negat adams POCT U GLU (test code = 3256) Negative - Negati ve POCT U KETONE (test code = 3258) neg Negative - Neg ative POCT U UROBILI (test code = 3260) na 0.2-1 POCT U BILI (test code = 3261) na Negative - Negat adams POCT U BLD (test code = 3257) neg Negative - Negati ve POCT U COLOR (test code = 3266) POCT U APPEAR (test code = 3267) Lab Interpretation (test cod e = 55875-0) Abnormal [facility]/O SPECIFIC [id number] 14:43:00* Test Item Value Reference Range Interpretation Comme nts POCT PH U (test code = 3254) 8 mg/dl 5-8 POCT U LEUK EST (test code = 3263) neg Negative - Negative POCT U NIT (test code = 3262) neg Negative - Negati ve POCT U PROT (test code = 3259) trace Negative - Negat adams POCT U GLU (test code = 3256) Negative - Negati ve POCT U KETONE (test code = 3258) neg Negative - Neg ative POCT U BLD (test code = 3257) neg Negative - Negati ve Lab Interpretation (test cod e = 50913-6) [facility]normal [facility]
[2023-10-19] MEDS ORDERED: ONDANSETRON 4 MG (ODT) TAB ONE (02:27)
[2023-10-19] MEDS ORDERED: DICYCLOMINE HCL 10 MG CAP ONE (02:27)
[2023-10-19] MEDS ORDERED: MECLIZINE HCL 12.5 MG TAB ONE (02:27)
[2023-10-19] MEDS ORDERED: TRAMADOL HCL 50 MG TAB ONE (02:28)
[2023-10-19] MEDS ORDERED: NA CHLORIDE 0.9% 1,000 ML ONE (02:33)
[2023-10-19 03:25] LABS: Barbiturates NEGATIVE (NEGATIVE); Benzodiazepines NEGATIVE (NEGATIVE); Cocaine NEGATIVE (NEGATIVE); METHAMPHETAM POSITIVE (NEGATIVE); Methadone NEGATIVE (NEGATIVE); Opiates NEGATIVE (NEGATIVE); Phencyclidine NEGATIVE (NEGATIVE); THC Cannibis NEGATIVE (NEGATIVE)
[2023-10-19 03:28] LABS: Absolute Lymphocytes (CBC) 2.7 K/uL (0.7-4.9); Absolute Monocytes 0.4 K/uL (0.1-1.3); Absolute Neutrophil 4.6 K/uL (1.8-8.0); Basophils % 0.4 % (0-1.3); Eosinophils % 0.2 % (0-4.4); Hematocrit 44.3 % (36.0-45.0); Hemoglobin 14.2 g/dL (12.0-15.0); Lymphocytes % 34.4 % (15.3-44.8); MCH 26.1 pg (27.0-35.0); MCHC 32.1 g/dL (32.0-36.0); MCV 81.2 fL (80-100); MPV 9.8 fL (7.6-11.3); Monocytes % 4.8 % (3.3-12.3); Neutrophils % 60.2 % (41.7-73.7); Platelets 314 thou/uL (152-406); RBC Red Blood Cell Count 5.46 M/uL (3.86-4.86); Red Cell Distribution Width 13.1 % (12.1-15.2)
[2023-10-19 03:41] LABS: Albumin 4.1 g/dL (3.4-5.0); Albumin/Globulin Ratio 0.8 (1.1-1.8); Anion Gap 8.3 mEq/L (5.0-15.0); Bilirubin Total 0.3 mg/dL (0.2-1.0); Protein, Total 9.1 g/dL (6.4-8.2)
[2023-10-19 03:44] LABS: Potassium 3.3 mEq/L (3.5-5.1)
[2023-10-19 03:53] LABS: C-Reactive Protein 4.04 mg/L (<3.00); Thyroid Stimulating Hormone 1.68 uIU/mL (0.358-3.740)
[2023-10-19 03:54] LABS: Specific Gravity > 1.030 (1.005-1.030)
[2023-10-19 03:55] LABS: Specific Gravity > 1.030 (1.005-1.030); Urine Bilirubin NEGATIVE (Negative); Urine Blood Negative (Negative); Urine Clarity Clear (Clear); Urine Color Light-Yellow (Yellow); Urine Glucose 4+ (Over) (Negative); Urine Ketones TRACE (Negative); Urine Microscopic Reflex YN NO UMIC; Urine Nitrite NEGATIVE (Negative); Urine Protein NEGATIVE (Negative); Urine Urobilinogen Normal (Normal)
--- NOTE | 2023-10-19 05:20 | ER ---
Nurse's Notes [facility] Name: Ping Brown Age: 32 yrs Sex: Female : 1990 Arrival Date: 10/19/2023 Time: 01:00 Bed 8 Private MD: Diagnosis: Type 2 diabetes mellitus with hyperglycemia;Abdominal cramps, dizziness, hyperglycemia, electrolyte imbalance Presentation: 10/18 01:19 Chief complaint: Patient states: stomach cramps, lower back pain, feel like going to [facility] pass out. Coronavirus screen: At this time, the client does not indicate any symptoms associated with coronavirus-19. Ebola Screen: Patient negative for fever greater than or equal to 101.5 degrees Fahrenheit, and additional compatible Ebola Virus Disease symptoms Patient denies exposure to infectious person. Patient denies travel to an Ebola-affected area in the 21 days before illness onset. No symptoms or risks identified at this time. Initial Sepsis Screen: Does the patient meet any 2 criteria? No. Patient's initial sepsis screen is negative. Does the patient have a suspected source of infection? No. Patient's initial sepsis screen is negative. Risk Assessment: Do you want to hurt yourself or someone else? Patient reports no desire to harm self or others. Note for a few months. Onset of symptoms is unknown. 01:19 Method Of Arrival: Ambulatory vc1 01:19 Acuity: MARIA C 3 vc1 Triage Assessment: 01:21 General: Appears in no apparent distress. uncomfortable, Behavior is calm, cooperative, vc1 appropriate for age. Pain: Complains of pain in low back area, right upper quadrant and left upper quadrant Pain does not radiate. Pain currently is 8 out of 10 on a pain scale. Quality of pain is described as crampy. Respiratory: Airway is patent Respiratory effort is even, unlabored, Respiratory pattern is regular, symmetrical. GI: Abdomen is round non-distended, Reports upper abdominal pain. : Reports pain in lower back Denies urinary frequency. Derm: No deficits noted. No signs and/or symptoms reported regarding the dermatologic system. Skin is intact, is healthy with good turgor, Skin is dry, Skin is normal, Skin temperature is warm. 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 - Infectious Disease History:: Denies. - Social history:: Smoking status: Patient reports the use of cigarette tobacco products, smokes one-half pack cigarettes per day. - Family history:: not pertinent. Screenin:00 [place] ED Fall Risk Assessment (Adult) History of falling in the last 3 months, jw7 including since admission No falls in past 3 months (0 pts) Confusion or Disorientation No (0 pts) Intoxicated or Sedated No (0 pts) Impaired Gait No (0 pts) Mobility Assist Device Used No (0 pt) Altered Elimination No (0 pt) Score/Fall Risk Level 0 - 2 = Low Risk Oriented to surroundings, Maintained a safe environment, Educated pt \T\ family on fall prevention, incl call for assistance when getting out of bed. Abuse screen: Denies threats or abuse. Denies injuries from another. Nutritional screening: No deficits noted. Tuberculosis screening: No symptoms or risk factors identified. Assessment: 01:30 General: Appears uncomfortable, Behavior is cooperative. Pain: Complains of pain in ha1 abdomen and left upper quadrant and right upper quadrant Pain does not radiate. Pain currently is 7 out of 10 on a pain scale. Quality of pain is described as crampy, Pain began suddenly. Neuro: Level of Consciousness is awake, alert, obeys commands, Oriented to person, place, time, situation. Neuro: Reports dizziness. Cardiovascular: Capillary refill < 3 seconds Patient's skin is warm and dry. Respiratory: Airway is patent Respiratory effort is even, unlabored, Respiratory pattern is regular, symmetrical. GI: Abdomen is flat, non-distended, Bowel sounds present X 4 quads. Abd is soft and non tender Reports lower abdominal pain. Derm: Skin is pink, warm \T\ dry. Musculoskeletal: Circulation, motion, and sensation intact. 02:30 Reassessment: Patient and/or family updated on plan of care and expected duration. Pain ha1 level reassessed. Patient is alert, oriented x 3, equal unlabored respirations, skin warm/dry/pink. 03:22 Reassessment: Patient and/or family updated on plan of care and expected duration. Pain ha1 level reassessed. Patient is alert, oriented x 3, equal unlabored respirations, skin warm/dry/pink. Patient denies pain at this time. Patient states feeling better. Patient states symptoms have improved. 04:29 Reassessment: Patient appears in no apparent distress at this time. No changes from 7 previously documented assessment. Patient and/or family updated on plan of care and expected duration. Pain level reassessed. Patient is alert, oriented x 3, equal unlabored respirations, skin warm/dry/pink. 05:25 Reassessment: Patient appears in no apparent distress at this time. No changes from jw7 previously documented assessment. Patient and/or family updated on plan of care and expected duration. Pain level reassessed. Patient is alert, oriented x 3, equal unlabored respirations, skin warm/dry/pink. Vital Signs: 01:19 Weight 79.38 kg; Height 5 ft. 3 in. ; Pain 8/10; vc1 01:23 BP 149 / 100; Pulse 85; Resp 14; Temp 97.9; Pulse Ox 98% ; vc1 03:00 BP 149 / 99; Pulse 67; Resp 17 S; Pulse Ox 99% on R/A; ha1 04:00 BP 153 / 111; Pulse 67; Resp 16 S; Pulse Ox 96% on R/A; jw7 05:30 BP 133 / 89; Pulse 56; Resp 16 S; Pulse Ox 98% on R/A; jw7 01:19 Body Mass Index 31.00 (79.38 kg, 160.02 cm) vc1 01:19 Pain Scale: Adult vc1 [place] Coma Score: 05:26 Eye Response: spontaneous(4). Motor Response: obeys commands(6). Verbal Response: sp4 oriented(5). Total: 15. ED Course: 01:02 Patient arrived in ED. jj6 01:07 Isrrael Solorio MD is Attending Physician. sp4 01:20 Triage completed. vc1 01:21 Arm band placed on right wrist. vc1 02:00 Patient has correct armband on for positive identification. Bed in low position. Call jw7 light in reach. Side rails up X 1. Provided Education on: Use of Call Light. 02:00 Missed attempt(s): 22 gauge in left antecubital area. Bleeding controlled, band aid wm applied, catheter tip intact. 02:10 Missed attempt(s): 22 gauge in left antecubital area. Bleeding controlled, band aid vc1 applied, catheter tip intact. 02:32 CBC with Diff Sent. lg3 02:32 CMP Sent. lg3 02:32 Lipase Sent. lg3 02:32 Test, Urine Sent. lg3 02:32 Urinalysis w/ reflexes Sent. lg3 02:35 Inserted saline lock: 22 gauge in left forearm, using aseptic technique. Blood lg3 collected. 02:57 Urine Drug Screen Sent. wm 02:57 T4 Free Sent. wm 02:57 TSH Sent. wm 02:57 CRP Sent. wm 05:41 No provider procedures requiring assistance completed. IV discontinued, intact, ha1 bleeding controlled, No redness/swelling at site. Pressure dressing applied. Administered Medications: 02:32 Drug: Meclizine PO 25 mg PO once Route: PO; lg3 03:00 Follow up: Response: No adverse reaction; Marked relief of symptoms ha1 02:32 Drug: Ondansetron PO 4 mg PO once Route: PO; lg3 03:00 Follow up: Response: No adverse reaction; Marked relief of symptoms ha1 02:32 Drug: traMADol PO 100 mg PO once Route: PO; lg3 03:00 Follow up: Response: No adverse reaction; Marked relief of symptoms; Pain is decreased ha1 02:32 Drug: Dicyclomine PO 20 mg PO once Route: PO; lg3 03:00 Follow up: Response: No adverse reaction; Marked relief of symptoms ha1 02:35 Drug: NS 0.9% IV 1000 ml IV at 1 bolus Per protocol; 1000 mL bolus Route: IV; Rate: 1 lg3 bolus; Site: left forearm; 03:40 Follow up: Response: No adverse reaction; IV Status: Completed infusion; IV Intake: jw7 1000ml Medication: 05:42 VIS not applicable for this client. ha1 Intake: 03:40 IV: 1000ml; Total: 1000ml. jw7 Outcome: 05:19 Discharge ordered by MD. farrar 05:41 Discharged to home ambulatory, with family, ha1 05:41 Condition: stable 05:41 Discharge instructions given to patient, Instructed on discharge instructions, follow up and referral plans. no driving heavy equipment, Demonstrated understanding of instructions, follow-up care, medications, Prescriptions given X 2, 05:42 Patient left the ED. ha1 Signatures: Mercedes Swan, RN RN lg3 Sasha Florence Jennifer jj6 Enriqueta Daniels RN RN vc1 Marlyn Graham RN RN jw7 Kymberly Ron RN RN ha1 Isrrael Solorio MD MD sp4 Corrections: (The following items were deleted from the chart) 01:21 01:20 PSHx: None; vc1 vc1 03:01 03:00 Missed attempt(s): 22 gauge in left antecubital area. Bleeding controlled, band wm aid applied, catheter tip intact. wm
--- NOTE | 2023-10-19 05:20 | EDPHYS ---
Physician Documentation [facility] Name: Ping Brown Age: 32 yrs Sex: Female : 1990 Arrival Date: 10/19/2023 Time: 01:00 Bed 8 Private MD: ED Physician Isrrael Solorio HPI: 10/18 01:08 This 32 yrs old Black Female presents to ER via Unassigned with complaints of sp4 Dizziness, Abdominal Pain. 05:26 Patient is a very pleasant 33-year-old female who presents with subacute onset of sp4 lightheaded feeling starting 2 months ago associated with abdominal cramps. . PAYMENT REP: 01:22 LMP 09/27/2023, unknown vc1 Historical: - Allergies: 01:20 No Known Allergies; vc1 - Home Meds: 01:20 None [Active]; vc1 - PMHx: 01:20 Diabetes - IDDM; PCOS; vc1 - PSHx: 01:20 section; vc1 - Immunization history:: Client reports receiving the 2nd dose of the Covid vaccine, Flu vaccine is up to date. - Infectious Disease History:: Denies. - Social history:: Smoking status: Patient reports the use of cigarette tobacco products, smokes one-half pack cigarettes per day. - Family history:: not pertinent. ROS: 05:26 Constitutional: Negative for fever, chills, and weight loss, positive dizziness, sp4 positive lightheaded feeling, positive abdominal cramping. 05:26 All other systems are negative, Exam: 05:26 Constitutional: This is a well developed, well nourished patient who is awake, alert, sp4 and in no acute distress. Head/Face: Normocephalic, atraumatic. Eyes: Pupils equal round and reactive to light, extra-ocular motions intact. Lids and lashes normal. Conjunctiva and sclera are not injected. Cornea within normal limits. Periorbital areas with no swelling, redness, or edema. ENT: Nares patent. No nasal discharge, no septal abnormalities noted. Tympanic membranes are normal and external auditory canals are clear. Oropharynx with no redness, swelling, or masses, exudates, or evidence of obstruction, uvula midline. Mucous membranes moist. Neck: Trachea midline, no thyromegaly or masses palpated, and no cervical lymphadenopathy. Supple, full range of motion without nuchal rigidity, or vertebral point tenderness. Chest/axilla: Normal chest wall appearance and motion. Nontender with no deformity. No lesions are appreciated. Cardiovascular: Regular rate and rhythm with a normal S1 and S2. No gallops, murmurs, or rubs. Normal PMI, no JVD. No pulse deficits. Respiratory: Lungs have equal breath sounds bilaterally, clear to auscultation and percussion. No rales, rhonchi or wheezes noted. No increased work of breathing, no retractions or nasal flaring. Abdomen/GI: Soft, with normal bowel sounds. No distension or tympany. No guarding or rebound. No evidence of tenderness throughout. Back: No spinal tenderness. No costovertebral tenderness. Skin: Warm, dry with normal turgor. Normal color with no rashes, no lesions, and no evidence of cellulitis. MS/ Extremity: Pulses equal, no cyanosis. Neurovascular intact. Full, normal range of motion. Neuro: Awake and alert, GCS 15, oriented to person, place, time, and situation. Cranial nerves II-XII grossly intact. Motor strength 5/5 in all extremities. Sensory grossly intact. Psych: Awake, alert, with orientation to person, place and time. Behavior, mood, and affect are within normal limits Vital Signs: 01:19 Weight 79.38 kg; Height 5 ft. 3 in. ; Pain 8/10; vc1 01:23 BP 149 / 100; Pulse 85; Resp 14; Temp 97.9; Pulse Ox 98% ; vc1 03:00 BP 149 / 99; Pulse 67; Resp 17 S; Pulse Ox 99% on R/A; ha1 04:00 BP 153 / 111; Pulse 67; Resp 16 S; Pulse Ox 96% on R/A; jw7 05:30 BP 133 / 89; Pulse 56; Resp 16 S; Pulse Ox 98% on R/A; jw7 01:19 Body Mass Index 31.00 (79.38 kg, 160.02 cm) vc1 01:19 Pain Scale: Adult vc1 [place] Coma Score: 05:26 Eye Response: spontaneous(4). Motor Response: obeys commands(6). Verbal Response: sp4 oriented(5). Total: 15. MDM: 01:13 Patient medically screened. sp4 05:26 Differential diagnosis: generalized weakness, hypovolemia, idiopathic dizziness, sp4 near-syncope, . Data reviewed: vital signs, nurses notes, lab test result(s). ED course: Patient states she is feeling better. Patient positive for crystal meth, positive for hyperglycemia 370 . Will recommend to discontinue use of methamphetamine, will recommend better diabetes control with metformin, glipizide, also follow-up with primary care physician. Patient stable for discharge home. Will prescribe glipizide 5 mg p.o. twice daily for better blood sugar control. Will advise strict diabetic diet. . 10/18 01:08 Order name: CBC with Diff; Complete Time: 05:12 sp4 10/18 01:08 Order name: CMP; Complete Time: 05:12 sp4 10/18 01:08 Order name: Lipase; Complete Time: 05:12 sp4 10/18 01:08 Order name: Test, Urine; Complete Time: 05:12 sp4 10/18 01:08 Order name: Urinalysis w/ reflexes; Complete Time: 05:12 sp4 10/18 01:39 Order name: CRP; Complete Time: 05:12 sp4 10/18 01:39 Order name: TSH; Complete Time: 05:12 sp4 10/18 01:39 Order name: T4 Free; Complete Time: 05:12 sp4 10/18 01:39 Order name: Urine Drug Screen; Complete Time: 05:12 sp4 10/18 01:08 Order name: IV Saline Lock; Complete Time: 02:32 sp4 10/18 01:08 Order name: Labs collected and sent; Complete Time: 02:32 sp4 Administered Medications: 02:32 Drug: Meclizine PO 25 mg PO once Route: PO; lg3 03:00 Follow up: Response: No adverse reaction; Marked relief of symptoms ha1 02:32 Drug: Ondansetron PO 4 mg PO once Route: PO; lg3 03:00 Follow up: Response: No adverse reaction; Marked relief of symptoms ha1 02:32 Drug: traMADol PO 100 mg PO once Route: PO; lg3 03:00 Follow up: Response: No adverse reaction; Marked relief of symptoms; Pain is decreased ha1 02:32 Drug: Dicyclomine PO 20 mg PO once Route: PO; lg3 03:00 Follow up: Response: No adverse reaction; Marked relief of symptoms ha1 02:35 Drug: NS 0.9% IV 1000 ml IV at 1 bolus Per protocol; 1000 mL bolus Route: IV; Rate: 1 lg3 bolus; Site: left forearm; 03:40 Follow up: Response: No adverse reaction; IV Status: Completed infusion; IV Intake: jw7 1000ml Disposition Summary: 10/19/23 05:19 Discharge Ordered Notes: Location: Home sp4 Problem: new sp4 Symptoms: have improved sp4 Condition: Stable sp4 Diagnosis - Type 2 diabetes mellitus with hyperglycemia sp4 - Abdominal cramps, dizziness, hyperglycemia, electrolyte imbalance sp4 Followup: sp4 - With: Private Physician - When: 7 - 10 days - Reason: Recheck today's complaints Discharge Instructions: - Discharge Summary Sheet sp4 - Diabetes Mellitus and Nutrition, Adult sp4 Forms: - Patient Portal Instructions sp4 Prescriptions: - Glipizide 5 mg Oral tablet - take 1 tablet ORAL route every 12 hours before a meal; 60 tablet; Refills: 0, sp4 Product Selection Permitted - dicyclomine 20 mg Oral tablet - take 1 tablet ORAL route 3 times per day PRN abdominal cramps; 60 tablet; sp4 Refills: 0, Product Selection Permitted Signatures: Dispatcher [employer] Mercedes Martinez RN RN lg3 Enriqueta Daniels RN RN vc1 Isrrael Solorio MD MD sp4 WaitsMarlyn RN jw7 Kymberly Ron RN ha1 Corrections: (The following items were deleted from the chart) 01:21 01:20 PSHx: None; vc1 vc1 01:40 01:40 C-REACTIVE PROTEIN+C.LAB.BRZ ordered. EDMS EDMS 01:40 01:40 THYROID STIMULAT HORMONE+C.LAB.BRZ ordered. EDMS EDMS 01:40 01:40 T4 FREE+C.LAB.BRZ ordered. EDMS EDMS 01:40 01:40 HEMOGLOBIN A1C+CHEM A1C.LAB.BRZ ordered. EDMS EDMS
[2023-10-19 05:49] VITALS: TEMP 97.9
[2023-10-19 06:25] VITALS: BP 153/111; O2SAT 96
== END 2023-10-19 05:42 | disposition home or self-care (01) ==
LOC: ER 01:00
DX: E11.65 Type 2 diabetes mellitus with hyperglycemia (principal); E87.8 Other disorders of electrolyte and fluid balance, not elsewhere classified; R42 Dizziness and giddiness
CPT/HCPCS: 36415; 80053; 80307; 81003; 81025; 83690; 84439; 84443; 85025; 86140; 96360; 99284; J7030; J8597; Q0162